=== PATIENT | male | born 1950 | race Caucasian/White ===

== ENCOUNTER → 2017-12-02 08:53 | Outpatient (CLI) | payer OTHER, SELFPAY | PROVIDERS: PCP Internal Medicine; Visit Provider Internal Medicine | DX: I87.311 Chronic venous hypertension (idiopathic) with ulcer of right lower extremity (principal); L97.812 Non-pressure chronic ulcer of other part of right lower leg with fat layer exposed; D48.5 Neoplasm of uncertain behavior of skin | CPT/HCPCS: 99212 ==

== ENCOUNTER → 2017-12-09 08:55 | Outpatient (CLI) | payer OTHER, SELFPAY | PROVIDERS: PCP Internal Medicine; Visit Provider Internal Medicine | DX: L97.812 Non-pressure chronic ulcer of other part of right lower leg with fat layer exposed (principal); D48.5 Neoplasm of uncertain behavior of skin | CPT/HCPCS: 99212 ==

== ENCOUNTER → 2017-12-16 09:14 | Outpatient (CLI) | payer OTHER, SELFPAY | PROVIDERS: PCP Internal Medicine; Visit Provider Internal Medicine | DX: I87.2 Venous insufficiency (chronic) (peripheral) (principal); L97.812 Non-pressure chronic ulcer of other part of right lower leg with fat layer exposed; D48.5 Neoplasm of uncertain behavior of skin | CPT/HCPCS: 97597 ==

== ENCOUNTER → 2017-12-23 08:35 | Outpatient (CLI) | payer OTHER, SELFPAY | PROVIDERS: PCP Internal Medicine; Visit Provider Internal Medicine | DX: I87.311 Chronic venous hypertension (idiopathic) with ulcer of right lower extremity (principal); L97.812 Non-pressure chronic ulcer of other part of right lower leg with fat layer exposed | CPT/HCPCS: 99213 ==

== ENCOUNTER → 2018-01-06 09:05 | Outpatient (CLI) | payer OTHER, SELFPAY ==
--- NOTE | 2018-01-06 | OV.WND_ITS ---
Progress Note Details Patient Name: Pio Silva Patient Number: [id number] PatientPatientDate: 01/06/2018 Clinician: Kadi Dial Clinician Cosigner: Kaitlin Montana Physician / Manager Line: Roverto Davis SUBJECTIVE Chief Complaint This information was obtained from the patient Ulcer to right medial lower leg. Allergies Bactrim (Severity: Moderate, Reaction: itchy rash) HPI This information was obtained from the patient 01/06/18. Seen by Dov Davis PA-C. The patient reports improvement in drainage from his right lower leg ulcer this week. 12/23/17. Seen by Dr. Jorge. The patient does not report significant drainage associated with the right lower leg venous ulcer since his last visit. 12/16/17. Seen by Dr. Jorge. The patient does not report significant drainage associated with the right lower leg venous ulcer since his last visit. Regarding the more proximal right lower leg neoplasm, he's now scheduled to see dermatology at the end of January and he notes that the eschar that had covered the central area of the lesion fell off in the shower earlier this week. 12/09/17. Seen by Dr. Jorge. The patient does not report significant drainage associated with the right lower leg venous ulcer since his last visit. He's not yet scheduled an appointment with dermatology to review the suspicious proximal right lower leg nodule that deteriorated when we placed a compression wrap 2 weeks ago. 12/02/17. Seen by Dr. Jorge. The patient reports pain associated with a proximal right lower leg nodule after placing a compression wrap at this last visit to treat chronic venous hypertension and a chronic distal right lower leg venous ulcer. He removed the wrap and notes a blister formed around the nodule and drained. This lesion has been present he states for at least 6 years and has not undergone any changes recently until the wrap was placed. 11/25/2017. Seen by Dr. Jorge. The patient tolerated the compression wrap that was placed 2 days ago and is treating chronic venous hypertension and the associated venous ulcer of the right lower leg. 11/23/17. Seen by Dr. Jorge. The patient does not report significant drainage associated with the right lower leg venous ulcer since his last visit. 11/16/17. Seen by Dr. Jorge. 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 11/09/17. Seen by Dr. Jorge. The patient reports only some mild intermittent discomfort associated with the chronic right lower leg venous ulcer since his last visit. He is applying topical gentamicin as recommended and changing the dressing daily. 10/31/17. Seen by Dr. Jorge. The patient does not report significant drainage associated with the right lower leg venous ulcer since his last visit however he does report some recurrence of pain over the past 24 hours. He is applying [id number] topical antibiotic and does not report leg swelling, fevers, or feeling unwell. 10/17/17. Seen by Dr. Jorge. The patient does not report pain nor significant drainage associated with the right lower leg venous ulcer since his last visit. He continues to apply topical antibiotic has completed his recent course of doxycycline those treating MSSA positive wound culture. Of note, he states is unable to afford the co-pay for debridements that his insurance is charging. He's also trying to reduce his smoking since our discussion last week. 10/10/17. Seen by Dr. Jorge. The patient reports decreased pain and drainage associated with the chronic right lower leg venous ulcer since his last visit. He also states the previous reported rash and pruritus has resolved since changing from Bactrim to doxycycline. 10/03/17. Seen by Dr. Jorge. The patient reports a pruritic rash since started taking Bactrim for the MSSA positive wound culture taken of the chronic right lower leg nonpressure ulcer last week. He does not report pain at the ulcer site nor increased drainage and feels the surrounding erythema is improving. He also continues smoking and has not yet decreased his habit following the recommendation offered in clinic last week. 09/27/17. Seen by Dov Davis PA-C. This patient is new to our clinic and presents with a non- healing ulcer of the right lower leg. He reports that it began spontaneously in May 2017 and he has attempted to heal it himself without success. He reports that he doesn't go to the doctor very often and is a current smoker. Family History This information was obtained from the patient Heart Disease - Father Social History This information was obtained from the patient Current every day smoker - 1 1/2 pack per day, since age 40, Alcohol Use - 3 per day, Caffeine Use - 3 per day, Lives in - Private home , Marital Status - , Retired, Tobacco Use - 1 1/2 pack a day Past Medical History This information was obtained from the patient Patient has a medical history of: Chronic venous hypertension (right lower leg; complicated by inflammation and ulcer) Surgical History This information was obtained from the patient Patient has a surgical history of: Esophageal obstruction- removal of a toothpick (2002) Esophageal obstruction- scar tissue/stricture removal Complaints and Symptoms This information was obtained from the patient Patient complains of: General Notes: I have reviewed and concur with the Review of Systems and Past Family Social History documents completed by the clinician, I have reviewed and concur with the Wound Assessment document completed by the clinician Integumentary (Hair/Skin/Nails): Open Sore Prior Wound History: Drainage, Pain Patient denies complaints or symptoms related to: Cardiovascular (Central): Irregular heart beat Cardiovascular (Central/Peripheral): Intermittent Claudication, Lower extremity (leg) resting pain, Lower extremity (leg) swelling Constitutional Symptoms (General Health): Chills, Fever Ear/Nose/Mouth/Throat: Hearing Loss / Aid Gastrointestinal (GI): Nausea / Vomiting Hematologic/Lymphatic: Bleeding / Clotting Disorders, Bleeding Tendency Musculoskeletal: Deformities, Muscle Wasting, Muscle Weakness Neurological: Loss of Protective Sensation Prior Wound History: Bleeding Psychiatric: Memory Loss Respiratory: Oxygen Use OBJECTIVE Constitutional Vital signs reviewed and noted. Well developed, lucid, and in no acute distress. . Height/Length: 72 in (182.88 cm), Weight: 197.4 lbs (89.73 kgs), BMI: 26.8, Temperature: 98.6 ?F (37 ?C), Pulse: 71 bpm, Respiratory Rate: 18 breaths/min, Blood Pressure : 155/91 mmHg, Pulse Oximetry: 99 %. Eyes: Conjunctiva clear and without icterus. Pupils are equal and round; EOM's intact. Ears, Nose, Mouth, and Throat: Grossly intact. Respiratory: No respiratory distress. Even respirations and without use of accessory muscles.. Integumentary (Hair, Skin) Refer to appropriate clinician wound documentation for this visit; ulcer extends to subcutaneous fat layer. . Wound #1 Right, Medial Leg is a chronic Full Thickness Venous Ulcer and has received a status of Not Healed. Subsequent wound encounter measurements are 0.8cm length x 0.3cm width x 0.1cm depth, with an area of 0.24 sq cm and a volume of 0.024 cubic cm. Hypergranulation was noted. No tunneling has been noted. No sinus tract has been noted. No undermining has been noted. There is a scant amount of sero-sanguineous drainage noted which has no odor. The patient reports a wound pain of level 0/10. The wound margin is attached. Wound bed has Yes epithelialization, No eschar, No slough, Yes bright red, firm granulation. The periwound skin texture is normal. The periwound skin moisture is normal. The periwound skin exhibited: Hemosiderosis. The periwound skin did not exhibit: Atrophie Maida, Cyanosis, Ecchymosis, Erythema, Pallor, Rubor. The temperature of the periwound skin is Warm. Periwound skin does not exhibit signs or symptoms of infection. Local Pulse is Strong. Psychiatric: Judgement and insight: Normal affect with normal thought pattern. Alert and oriented 3/3. Memory grossly intact.. Normal affect. Mood appropriate.. ASSESSMENT Active Problems ICD-10 (Encounter Diagnosis) L97.812 - Non-pressure chronic ulcer of other part of right lower leg with fat layer exposed PLAN Wound Orders: Wound #1 Right, Medial Leg Cleanser Cleanse Wound: - Normal Saline or distilled water. Dressings Primary dressing: - Gentamicin Cover and secure with: - Optifoam, conform gauze then hypafix tape Change Dressing: - Every other day. Compression/Edema Control Elevation of leg(s) above the level of the heart when sitting. Avoid prolonged standing in one place. Single Layer Compression Hose - Tetra E on in morning off at night. Follow-Up Appointments Return Appointment: - - two weeks Scribing Attestation I attest, as the nurse, that I scribed these orders for the physician. I've reviewed the clinician's documentation and agree with the evaluation and plan as written. The patient's condition continues to be medically complex requiring continued and regular specialty wound care clinic visits. To that end we will continue with routine dressing changes and in clinic medical assessments including surveillance for bacterial infection as well as routine debridements of non-viable tissue when needed. Electronic Signature(s) Signed By: Date: Dov Davis 01/09/2018 22:08:02 Entered By: Dov Davis on 01/09/2018 13:26:11
== END ==
PROVIDERS: PCP Internal Medicine; Visit Provider Physician Assistant
DX: L97.812 Non-pressure chronic ulcer of other part of right lower leg with fat layer exposed (principal)
CPT/HCPCS: 99213

== ENCOUNTER → 2018-01-20 08:30 | Outpatient (CLI) | payer OTHER, SELFPAY ==
--- NOTE | 2018-01-20 | OV.WND_ITS ---
Progress Note Details Patient Name: Pio Silva Patient Number: [id number] PatientPatientDate: 01/20/2018 Clinician: Kaitlin Montana Clinician Cosigner: Arianna Dodson Physician / Sub Plant Manager: Jaspreet Jorge SUBJECTIVE Chief Complaint This information was obtained from the patient Ulcer to right medial lower leg. Allergies Bactrim (Severity: Moderate, Reaction: itchy rash) HPI This information was obtained from the patient 01/20/18. Seen by Dr. Jorge. The patient does not report significant drainage associated with the right lower leg venous ulcer since his last visit. 01/06/18. Seen by Dov Davis PA-C. The patient reports improvement in drainage from his right lower leg ulcer this week. 12/23/17. Seen by Dr. Jorge. The patient does not report significant drainage associated with the right lower leg venous ulcer since his last visit. 12/16/17. Seen by Dr. Jorge. The patient does not report significant drainage associated with the right lower leg venous ulcer since his last visit. Regarding the more proximal right lower leg neoplasm, he's now scheduled to see dermatology at the end of January and he notes that the eschar that had covered the central area of the lesion fell off in the shower earlier this week. 12/09/17. Seen by Dr. Jorge. The patient does not report significant drainage associated with the right lower leg venous ulcer since his last visit. He's not yet scheduled an appointment with dermatology to review the suspicious proximal right lower leg nodule that deteriorated when we placed a compression wrap 2 weeks ago. 12/02/17. Seen by Dr. Jorge. The patient reports pain associated with a proximal right lower leg nodule after placing a compression wrap at this last visit to treat chronic venous hypertension and a chronic distal right lower leg venous ulcer. He removed the wrap and notes a blister formed around the nodule and drained. This lesion has been present he states for at least 6 years and has not undergone any changes recently until the wrap was placed. 11/25/2017. Seen by Dr. Jorge. The patient tolerated the compression wrap that was placed 2 days ago and is treating chronic venous hypertension and the associated venous ulcer of the right lower leg. 11/23/17. Seen by Dr. Jorge. The patient does not report significant drainage associated with the right lower leg venous ulcer since his last visit. 11/16/17. Seen by Dr. Jorge. 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 11/09/17. Seen by Dr. Jorge. The patient reports only some mild intermittent discomfort associated with the chronic right lower leg venous ulcer since his last visit. He is applying topical gentamicin as recommended and changing the dressing daily. 10/31/17. Seen by Dr. Jorge. The patient does not report significant drainage associated with the right lower leg venous ulcer since his last visit however he does report some recurrence of pain over the past 24 hours. He is applying [id number] topical antibiotic and does not report leg swelling, fevers, or feeling unwell. 10/17/17. Seen by Dr. Jorge. The patient does not report pain nor significant drainage associated with the right lower leg venous ulcer since his last visit. He continues to apply topical antibiotic has completed his recent course of doxycycline those treating MSSA positive wound culture. Of note, he states is unable to afford the co-pay for debridements that his insurance is charging. He's also trying to reduce his smoking since our discussion last week. 10/10/17. Seen by Dr. Jorge. The patient reports decreased pain and drainage associated with the chronic right lower leg venous ulcer since his last visit. He also states the previous reported rash and pruritus has resolved since changing from Bactrim to doxycycline. 10/03/17. Seen by Dr. Jorge. The patient reports a pruritic rash since started taking Bactrim for the MSSA positive wound culture taken of the chronic right lower leg nonpressure ulcer last week. He does not report pain at the ulcer site nor increased drainage and feels the surrounding erythema is improving. He also continues smoking and has not yet decreased his habit following the recommendation offered in clinic last week. 09/27/17. Seen by Dov Davis PA-C. This patient is new to our clinic and presents with a non- healing ulcer of the right lower leg. He reports that it began spontaneously in May 2017 and he has attempted to heal it himself without success. He reports that he doesn't go to the doctor very often and is a current smoker. Past Medical History This information was obtained from the patient Patient has a medical history of: Chronic venous hypertension (right lower leg; complicated by inflammation and ulcer) Complaints and Symptoms This information was obtained from the patient Patient complains of: General Notes: I have reviewed and concur with the Review of Systems and Past Family Social History documents completed by the clinician, I have reviewed and concur with the Wound Assessment document completed by the clinician Integumentary (Hair/Skin/Nails): Open Sore Prior Wound History: Drainage, Pain Patient denies complaints or symptoms related to: Cardiovascular (Central): Irregular heart beat Cardiovascular (Central/Peripheral): Intermittent Claudication, Lower extremity (leg) resting pain, Lower extremity (leg) swelling Constitutional Symptoms (General Health): Chills, Fever Ear/Nose/Mouth/Throat: Hearing Loss / Aid Gastrointestinal (GI): Nausea / Vomiting Hematologic/Lymphatic: Bleeding / Clotting Disorders, Bleeding Tendency Musculoskeletal: Deformities, Muscle Wasting, Muscle Weakness Neurological: Loss of Protective Sensation Prior Wound History: Bleeding Psychiatric: Memory Loss Respiratory: Oxygen Use OBJECTIVE Constitutional Vital signs reviewed and noted. Well developed. Alert. Clean appearing.. Height/ Length: 72 in (182.88 cm), Weight: 197.4 lbs (89.73 kgs), BMI: 26.8, Temperature: 98.2 ?F ( 36.78 ?C), Pulse: 65 bpm, Respiratory Rate: 18 breaths/min, Blood Pressure: 127/85 mmHg, Pulse Oximetry: 97 %. Ears, Nose, Mouth, and Throat: No clinically significant hearing loss on informal examination. Cardiovascular: 1+ right lower extremity edema. Integumentary (Hair, Skin) No periwound erythema, warmth, or significant drainage. No periwound rashes appreciated or noted otherwise.. Refer to appropriate clinician wound documentation for this visit; right lower leg ulcer extends to subcut with base partially covered with pink granulation, remainder fibrin and slough; much smaller than on previous review. Wound #1 Right, Medial Leg is a chronic Full Thickness Venous Ulcer and has received a status of Not Healed. Subsequent wound encounter measurements are 0.2cm length x 0.1cm width x 0.1cm depth, with an area of 0.02 sq cm and a volume of 0.002 cubic cm. Hypergranulation was noted. No tunneling has been noted. No sinus tract has been noted. No undermining has been noted. There was no drainage noted. The patient reports a wound pain of level 0/10. The wound margin is attached. Wound bed has Yes epithelialization, No eschar, No slough, No granulation. The periwound skin texture is normal. The periwound skin moisture is normal. The periwound skin exhibited: Hemosiderosis. The periwound skin did not exhibit: Atrophie Maida, Cyanosis, Ecchymosis, Erythema, Pallor, Rubor. The temperature of the periwound skin is Warm. Periwound skin does not exhibit signs or symptoms of infection. Local Pulse is Strong. Neurological: Cranial nerves grossly intact with symmetric function normal by informal observation.. ASSESSMENT Active Problems ICD-10 (Encounter Diagnosis) L97.812 - Non-pressure chronic ulcer of other part of right lower leg with fat layer exposed PLAN Wound Orders: Wound #1 Right, Medial Leg Cleanser Cleanse Wound: - Normal Saline or distilled water. Dressings Primary dressing: - Foam Cover and secure with: - conform gauze then hypafix tape Change Dressing: - Every other day. Compression/Edema Control Elevation of leg(s) above the level of the heart when sitting. Avoid prolonged standing in one place. Single Layer Compression Hose - Tetra E on in morning off at night. Follow-Up Appointments Return Appointment: - - two weeks Scribing Attestation I attest, as the nurse, that I scribed these orders for the physician. I've reviewed the clinician's documentation and agree with the evaluation and plan as written. Electronic Signature(s) Signed By: Date: Jaspreet Jorge MD 01/20/2018 15:59:11 Entered By: Jaspreet Jorge on 01/20/2018 14:25:34
== END ==
PROVIDERS: PCP Internal Medicine; Visit Provider Internal Medicine
DX: I87.311 Chronic venous hypertension (idiopathic) with ulcer of right lower extremity (principal); L97.812 Non-pressure chronic ulcer of other part of right lower leg with fat layer exposed
CPT/HCPCS: 99213

== ENCOUNTER → 2018-02-03 08:30 | Outpatient (CLI) | payer OTHER, SELFPAY ==
--- NOTE | 2018-02-03 | OV.WND_ITS ---
Progress Note Details Patient Name: Pio Silva Patient Number: [id number] PatientPatientDate: 02/03/2018 Clinician: Arianna Dodson Clinician Cosigner: Kaitlin [place] Physician / Soil Checker: Jaspreet Jorge SUBJECTIVE Chief Complaint This information was obtained from the patient Ulcer to right medial lower leg. Allergies Bactrim (Severity: Moderate, Reaction: itchy rash) HPI This information was obtained from the patient 02/03/18. Seen by Dr. Jorge. The patient reports increased pain and drainage associated with the chronic right lower leg venous ulcer starting about 2 days ago. He feels the leg is more swollen however he does not report fevers or feeling unwell. He'd also stopped applying topical gentamicin ointment following his last visit at our recommendation. 01/20/18. Seen by Dr. Jorge. The patient does not report significant drainage associated with the right lower leg venous ulcer since his last visit. 01/06/18. Seen by Dov Davis PA-C. The patient reports improvement in drainage from his right lower leg ulcer this week. 12/23/17. Seen by Dr. Jorge. The patient does not report significant drainage associated with the right lower leg venous ulcer since his last visit. 12/16/17. Seen by Dr. Jorge. The patient does not report significant drainage associated with the right lower leg venous ulcer since his last visit. Regarding the more proximal right lower leg neoplasm, he's now scheduled to see dermatology at the end of January and he notes that the eschar that had covered the central area of the lesion fell off in the shower earlier this week. 12/09/17. Seen by Dr. Jorge. The patient does not report significant drainage associated with the right lower leg venous ulcer since his last visit. He's not yet scheduled an appointment with dermatology to review the suspicious proximal right lower leg nodule that deteriorated when we placed a compression wrap 2 weeks ago. 12/02/17. Seen by Dr. Jorge. The patient reports pain associated with a proximal right lower leg nodule after placing a compression wrap at this last visit to treat chronic venous hypertension and a chronic distal right lower leg venous ulcer. He removed the wrap and notes a blister formed around the nodule and drained. This lesion has been present he states for at least 6 years and has not undergone any changes recently until the wrap was placed. 11/25/2017. Seen by Dr. Jorge. The patient tolerated the compression wrap that was placed 2 days ago and is treating chronic venous hypertension and the associated venous ulcer of the right lower leg. 11/23/17. Seen by Dr. Jorge. The patient does not report significant drainage associated with the right lower leg venous ulcer since his last visit. 11/16/17. Seen by Dr. Jorge. 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 11/09/17. Seen by Dr. Jorge. The patient reports only some mild intermittent discomfort associated with the chronic right lower leg venous ulcer since his last visit. He is applying topical gentamicin as recommended and changing the dressing daily. 10/31/17. Seen by Dr. Jorge. The patient does not report significant drainage associated with the right lower leg venous ulcer since his last visit however he does report some recurrence of pain over the past 24 hours. He is applying [id number] topical antibiotic and does not report leg swelling, fevers, or feeling unwell. 10/17/17. Seen by Dr. Jorge. The patient does not report pain nor significant drainage associated with the right lower leg venous ulcer since his last visit. He continues to apply topical antibiotic has completed his recent course of doxycycline those treating MSSA positive wound culture. Of note, he states is unable to afford the co-pay for debridements that his insurance is charging. He's also trying to reduce his smoking since our discussion last week. 10/10/17. Seen by Dr. Jorge. The patient reports decreased pain and drainage associated with the chronic right lower leg venous ulcer since his last visit. He also states the previous reported rash and pruritus has resolved since changing from Bactrim to doxycycline. 10/03/17. Seen by Dr. Jorge. The patient reports a pruritic rash since started taking Bactrim for the MSSA positive wound culture taken of the chronic right lower leg nonpressure ulcer last week. He does not report pain at the ulcer site nor increased drainage and feels the surrounding erythema is improving. He also continues smoking and has not yet decreased his habit following the recommendation offered in clinic last week. 09/27/17. Seen by Dov Davis PA-C. This patient is new to our clinic and presents with a non- healing ulcer of the right lower leg. He reports that it began spontaneously in May 2017 and he has attempted to heal it himself without success. He reports that he doesn't go to the doctor very often and is a current smoker. Past Medical History This information was obtained from the patient Patient has a medical history of: Chronic venous hypertension (right lower leg; complicated by inflammation and ulcer) Complaints and Symptoms This information was obtained from the patient Patient complains of: General Notes: I have reviewed and concur with the Review of Systems and Past Family Social History documents completed by the clinician, I have reviewed and concur with the Wound Assessment document completed by the clinician Integumentary (Hair/Skin/Nails): Open Sore Prior Wound History: Drainage, Pain Patient denies complaints or symptoms related to: Cardiovascular (Central): Irregular heart beat Cardiovascular (Central/Peripheral): Intermittent Claudication, Lower extremity (leg) resting pain, Lower extremity (leg) swelling Constitutional Symptoms (General Health): Chills, Fever Ear/Nose/Mouth/Throat: Hearing Loss / Aid Gastrointestinal (GI): Nausea / Vomiting Hematologic/Lymphatic: Bleeding / Clotting Disorders, Bleeding Tendency Musculoskeletal: Deformities, Muscle Wasting, Muscle Weakness Neurological: Loss of Protective Sensation Prior Wound History: Bleeding Psychiatric: Memory Loss Respiratory: Oxygen Use OBJECTIVE Constitutional BP elevated; Afebrile; Alert and in no distress. Well developed. Alert. Clean appearing.. Height/Length: 72 in (182.88 cm), Weight: 198.9 lbs (90.41 kgs), BMI: 27, Temperature: 98.9 ?F (37.17 ?C), Pulse: 63 bpm, Respiratory Rate: 18 breaths/min, Blood Pressure: 147/87 mmHg, Pulse Oximetry: 97 %. Ears, Nose, Mouth, and Throat: Mild hearing deficit. Respiratory: No respiratory distress. Even respirations and without use of accessory muscles.. Cardiovascular: 1+ right lower extremity edema. Integumentary (Hair, Skin) Moderate periwound erythema with warmth. Refer to appropriate clinician wound documentation for this visit; right lower leg ulcer extends to subcut with base partially covered with pink granulation, remainder fibrin and slough. Wound #1 Right, Medial Leg is a chronic Full Thickness Venous Ulcer and has received a status of Not Healed. Subsequent wound encounter measurements are 1.1cm length x 0.5cm width x 0.1cm depth, with an area of 0.55 sq cm and a volume of 0.055 cubic cm. Hypergranulation was noted. No tunneling has been noted. No sinus tract has been noted. No undermining has been noted. There is a small amount of serous drainage noted which has no odor. The patient reports a wound pain of level 0/10. The wound margin is attached. Wound bed has Yes epithelialization, No eschar, Yes slough, No granulation. The periwound skin texture is normal. The periwound skin moisture is normal. The periwound skin exhibited: Hemosiderosis. The periwound skin did not exhibit: Atrophie [place], Cyanosis, Ecchymosis, Erythema, Pallor, Rubor. The temperature of the periwound skin is Warm. Periwound skin presents with s/s of infection. Confirmation Description and Treatment Plan is: Signs and Symptoms Present. Local Pulse is Strong. Neurological: Cranial nerves grossly intact with symmetric function normal by informal observation.. ASSESSMENT Active Problems ICD-10 (Encounter Diagnosis) L97.812 - Non-pressure chronic ulcer of other part of right lower leg with fat layer exposed (Encounter Diagnosis) L03.115 - Cellulitis of right lower limb PLAN Wound Orders: Wound #1 Right, Medial Leg Cleanser Cleanse Wound: - Normal Saline or distilled water. Dressings Primary dressing: - Foam Cover and secure with: - conform gauze then hypafix tape Change Dressing: - Every other day. Compression/Edema Control Elevation of leg(s) above the level of the heart when sitting. Avoid prolonged standing in one place. Single Layer Compression Hose - Tetra E on in morning off at night. Follow-Up Appointments Return Appointment: - - two weeks Scribing Attestation I attest, as the nurse, that I scribed these orders for the physician. Additional Orders: Topical Treatments Antibiotic/Antimicrobial Ointment/Cream. - Gentamicin Laboratory: Culture Wound - Right leg Medications prescribed: doxycycline hyclate - oral 100 mg capsule twice daily for 5 days for cellulitis starting 02/03/2018 I've reviewed the clinician's documentation and agree with the evaluation and plan as written. Also, I've started the patient on doxycycline for cellulitis of the right lower leg associated with the venous ulcer. Electronic Signature(s) Signed By: Date: Jaspreet Jorge MD 02/03/2018 13:04:12 Entered By: Jaspreet Jorge on 02/03/2018 13:02:57
== END ==
PROVIDERS: PCP Internal Medicine; Visit Provider Internal Medicine
DX: I87.311 Chronic venous hypertension (idiopathic) with ulcer of right lower extremity (principal); L97.812 Non-pressure chronic ulcer of other part of right lower leg with fat layer exposed; L03.115 Cellulitis of right lower limb
CPT/HCPCS: 87070; 87075; 87077; 87147; 87205; 99212

== ENCOUNTER → 2018-02-10 08:31 | Outpatient (CLI) | payer OTHER, SELFPAY | PROVIDERS: PCP Internal Medicine; Visit Provider Internal Medicine | DX: I87.2 Venous insufficiency (chronic) (peripheral) (principal); L97.811 Non-pressure chronic ulcer of other part of right lower leg limited to breakdown of skin; L03.115 Cellulitis of right lower limb | CPT/HCPCS: 99213 ==

== ENCOUNTER → 2018-02-27 08:29 | Outpatient (CLI) | payer OTHER, SELFPAY ==
--- NOTE | 2018-02-27 | OV.WND_ITS ---
Progress Note Details Patient Name: Pio Silva Patient Number: [id number] PatientPatientDate: 02/27/2018 Clinician: Kaitlin Montana Clinician Cosigner: Arianna Dodson Physician / Branch Banker: Jaspreet Jorge SUBJECTIVE Chief Complaint This information was obtained from the patient Ulcer to right medial lower leg. Allergies Bactrim (Severity: Moderate, Reaction: itchy rash) HPI This information was obtained from the patient 02/27/18. Seen by Dr. Jorge. The patient does not report significant drainage associated with the right lower leg venous ulcer since his last visit. He does have a new surgical wound just proximal to the ulcer from his recent biopsy of a chronic lesion. He actually had 2 biopsies as the initial one was lost. 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 02/10/18. Seen by Dr. Jorge. The patient reports resolution of pain and drainage associated with the chronic right lower leg venous ulcer since completing his course of doxycycline that was started for cellulitis associated with the ulcer. 02/03/18. Seen by Dr. Jorge. The patient reports increased pain and drainage associated with the chronic right lower leg venous ulcer starting about 2 days ago. He feels the leg is more swollen however he does not report fevers or feeling unwell. He'd also stopped applying topical gentamicin ointment following his last visit at our recommendation. 01/20/18. Seen by Dr. Jorge. The patient does not report significant drainage associated with the right lower leg venous ulcer since his last visit. 01/06/18. Seen by Dov Davis PA-C. The patient reports improvement in drainage from his right lower leg ulcer this week. 12/23/17. Seen by Dr. Jorge. The patient does not report significant drainage associated with the right lower leg venous ulcer since his last visit. 12/16/17. Seen by Dr. Jorge. The patient does not report significant drainage associated with the right lower leg venous ulcer since his last visit. Regarding the more proximal right lower leg neoplasm, he's now scheduled to see dermatology at the end of January and he notes that the eschar that had covered the central area of the lesion fell off in the shower earlier this week. 12/09/17. Seen by Dr. Jorge. The patient does not report significant drainage associated with the right lower leg venous ulcer since his last visit. He's not yet scheduled an appointment with dermatology to review the suspicious proximal right lower leg nodule that deteriorated when we placed a compression wrap 2 weeks ago. 12/02/17. Seen by Dr. Jorge. The patient reports pain associated with a proximal right lower leg nodule after placing a compression wrap at this last visit to treat chronic venous hypertension and a chronic distal right lower leg venous ulcer. He removed the wrap and notes a blister formed around the nodule and drained. This lesion has been present he states for at least 6 years and has not undergone any changes recently until the wrap was placed. 11/25/2017. Seen by Dr. Jorge. The patient tolerated the compression wrap that was placed 2 days ago and is treating chronic venous hypertension and the associated venous ulcer of the right lower leg. 11/23/17. Seen by Dr. Jorge. The patient does not report significant drainage associated with the right lower leg venous ulcer since his last visit. 11/16/17. Seen by Dr. Jorge. 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 11/09/17. Seen by Dr. Jorge. The patient reports only some mild intermittent discomfort associated with the chronic right lower leg venous ulcer since his last visit. He is applying topical gentamicin as recommended and changing the dressing daily. 10/31/17. Seen by Dr. Jorge. The patient does not report significant drainage associated with the right lower leg venous ulcer since his last visit however he does report some recurrence of pain over the past 24 hours. He is applying [id number] topical antibiotic and does not report leg swelling, fevers, or feeling unwell. 10/17/17. Seen by Dr. Jorge. The patient does not report pain nor significant drainage associated with the right lower leg venous ulcer since his last visit. He continues to apply topical antibiotic has completed his recent course of doxycycline those treating MSSA positive wound culture. Of note, he states is unable to afford the co-pay for debridements that his insurance is charging. He's also trying to reduce his smoking since our discussion last week. 10/10/17. Seen by Dr. Jorge. The patient reports decreased pain and drainage associated with the chronic right lower leg venous ulcer since his last visit. He also states the previous reported rash and pruritus has resolved since changing from Bactrim to doxycycline. 10/03/17. Seen by Dr. Jorge. The patient reports a pruritic rash since started taking Bactrim for the MSSA positive wound culture taken of the chronic right lower leg nonpressure ulcer last week. He does not report pain at the ulcer site nor increased drainage and feels the surrounding erythema is improving. He also continues smoking and has not yet decreased his habit following the recommendation offered in clinic last week. 09/27/17. Seen by Dov Davis PA-C. This patient is new to our clinic and presents with a non- healing ulcer of the right lower leg. He reports that it began spontaneously in May 2017 and he has attempted to heal it himself without success. He reports that he doesn't go to the doctor very often and is a current smoker. Family History This information was obtained from the patient Heart Disease - Father Social History This information was obtained from the patient Current every day smoker - 1 1/2 pack per day, since age 40, Alcohol Use - 3 per day, Caffeine Use - 3 per day, Lives in - Private home , Marital Status - , Retired, Tobacco Use (deprecated) - 1 1/2 pack a day Past Medical History This information was obtained from the patient Patient has a medical history of: Chronic venous hypertension (right lower leg; complicated by inflammation and ulcer) Surgical History This information was obtained from the patient Patient has a surgical history of: Esophageal obstruction- removal of a toothpick (2002) Esophageal obstruction- scar tissue/stricture removal Complaints and Symptoms This information was obtained from the patient Patient complains of: General Notes: I have reviewed and concur with the Review of Systems and Past Family Social History documents completed by the clinician, I have reviewed and concur with the Wound Assessment document completed by the clinician Integumentary (Hair/Skin/Nails): Open Sore Prior Wound History: Drainage, Pain Patient denies complaints or symptoms related to: Cardiovascular (Central): Irregular heart beat Cardiovascular (Central/Peripheral): Intermittent Claudication, Lower extremity (leg) resting pain, Lower extremity (leg) swelling Constitutional Symptoms (General Health): Chills, Fever Ear/Nose/Mouth/Throat: Hearing Loss / Aid Gastrointestinal (GI): Nausea / Vomiting Hematologic/Lymphatic: Bleeding / Clotting Disorders, Bleeding Tendency Musculoskeletal: Deformities, Muscle Wasting, Muscle Weakness Neurological: Loss of Protective Sensation Prior Wound History: Bleeding Psychiatric: Memory Loss Respiratory: Oxygen Use OBJECTIVE Constitutional BP elevated; Afebrile; Alert and in no distress. Well developed. Alert. Clean appearing.. Height/Length: 72 in (182.88 cm), Weight: 197.9 lbs (89.95 kgs), BMI: 26.8, Temperature: 98.8 ?F (37.11 ?C), Pulse: 66 bpm, Respiratory Rate: 18 breaths/min, Blood Pressure: 148/88 mmHg, Pulse Oximetry: 97 %. Ears, Nose, Mouth, and Throat: Mild hearing deficit. Integumentary (Hair, Skin) Hemosiderin staining noted over right lower leg. Refer to appropriate clinician wound documentation for this visit; right lower leg ulcer extends to subcut with base partially covered with pink granulation, remainder fibrin and slough; proximal right lower leg wound extends to subcut with central round nodule present. Wound #1 Right, Medial Leg is a chronic Full Thickness Venous Ulcer and has received a status of Not Healed. Subsequent wound encounter measurements are 0.1cm length x 0.1cm width x 0.1cm depth, with an area of 0.01 sq cm and a volume of 0.001 cubic cm. Hypergranulation was noted. No tunneling has been noted. No sinus tract has been noted. No undermining has been noted. There is a scant amount of serous drainage noted which has no odor. The patient reports a wound pain of level 0/10. The wound margin is attached. Wound bed has Yes epithelialization, No eschar, No slough, Yes bright red, pink, firm granulation. The periwound skin texture is normal. The periwound skin moisture is normal. The periwound skin exhibited: Hemosiderosis. The periwound skin did not exhibit: Atrophie [place], Cyanosis, Ecchymosis, Erythema, Pallor, Rubor. The temperature of the periwound skin is Warm. Periwound skin does not exhibit signs or symptoms of infection. Local Pulse is Strong. Neurological: Cranial nerves grossly intact with symmetric function normal by informal observation.. ASSESSMENT Active Problems ICD-10 (Encounter Diagnosis) L97.812 - Non-pressure chronic ulcer of other part of right lower leg with fat layer exposed (Encounter Diagnosis) D23.9 - Other benign neoplasm of skin, unspecified PLAN Wound Orders: Wound #1 Right, Medial Leg Cleanser Cleanse Wound: - Normal Saline or distilled water. Dressings Primary dressing: - Telfa Cover and secure with: - conform gauze then hypafix tape Change Dressing: - Every other day. Compression/Edema Control Elevation of leg(s) above the level of the heart when sitting. Avoid prolonged standing in one place. Single Layer Compression Hose - Tetra E on in morning off at night. Follow-Up Appointments Return Appointment: - - Two weeks. Other information: If you develop fever, chills, increased pain, drainage, redness or swelling please call our office. If after hours, respond to the ER. Should you experience any significant changes in your wound(s) or have any questions regarding your home care instructions please contact the wound center @ [phone]. If after hours, contact your primary care physician or go to the hospital emergency room. Scribing Attestation I attest, as the nurse, that I scribed these orders for the physician. Additional Orders: Topical Treatments Antibiotic/Antimicrobial Ointment/Cream. - Gentamicin I've reviewed the clinician's documentation and agree with the evaluation and plan as written. Also, the chronic non-pressure ulcer is nearly healed and we'll be available to manage the right lower leg surgical wound as needed should it become complicated. It appears that it will heal via secondary intention. Electronic Signature(s) Signed By: Date: Jaspreet Jorge MD 02/28/2018 09:26:45 Entered By: Jaspreet Jorge on 02/28/2018 09:25:47
== END ==
PROVIDERS: PCP Internal Medicine; Visit Provider Internal Medicine
DX: I87.2 Venous insufficiency (chronic) (peripheral) (principal); L97.812 Non-pressure chronic ulcer of other part of right lower leg with fat layer exposed; D23.9 Other benign neoplasm of skin, unspecified
CPT/HCPCS: 99213

== ENCOUNTER → 2018-03-13 08:32 | Outpatient (CLI) | payer OTHER, SELFPAY ==
--- NOTE | 2018-03-13 | OV.WND_ITS ---
Progress Note Details Patient Name: Pio Silva Patient Number: [id number] PatientPatientDate: 03/13/2018 Clinician: Michelle Lewis Physician / Solder Sprayer: Jaspreet Jorge SUBJECTIVE Chief Complaint This information was obtained from the patient Ulcer to right medial lower leg. Allergies Bactrim (Severity: Moderate, Reaction: itchy rash) HPI This information was obtained from the patient 03/13/18. Seen by Dr. Jorge. The patient does not report significant drainage associated with the right lower leg venous ulcer since his last visit. He does not report pain or drainage associated with recently biopsied right proximal lower leg surgical wound either but has not had a follow appointment with dermatology yet regarding this. The biopsy showed a benign dermatofibroma. 02/27/18. Seen by Dr. Jorge. The patient does not report significant drainage associated with the right lower leg venous ulcer since his last visit. He does have a new surgical wound just proximal to the ulcer from his recent biopsy of a chronic lesion. He actually had 2 biopsies as the initial one was lost. 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 02/10/18. Seen by Dr. Jorge. The patient reports resolution of pain and drainage associated with the chronic right lower leg venous ulcer since completing his course of doxycycline that was started for cellulitis associated with the ulcer. 02/03/18. Seen by Dr. Jorge. The patient reports increased pain and drainage associated with the chronic right lower leg venous ulcer starting about 2 days ago. He feels the leg is more swollen however he does not report fevers or feeling unwell. He'd also stopped applying topical gentamicin ointment following his last visit at our recommendation. 01/20/18. Seen by Dr. Jorge. The patient does not report significant drainage associated with the right lower leg venous ulcer since his last visit. 01/06/18. Seen by Dov Davis PA-C. The patient reports improvement in drainage from his right lower leg ulcer this week. 12/23/17. Seen by Dr. Jorge. The patient does not report significant drainage associated with the right lower leg venous ulcer since his last visit. 12/16/17. Seen by Dr. Jorge. The patient does not report significant drainage associated with the right lower leg venous ulcer since his last visit. Regarding the more proximal right lower leg neoplasm, he's now scheduled to see dermatology at the end of January and he notes that the eschar that had covered the central area of the lesion fell off in the shower earlier this week. 12/09/17. Seen by Dr. Jorge. The patient does not report significant drainage associated with the right lower leg venous ulcer since his last visit. He's not yet scheduled an appointment with dermatology to review the suspicious proximal right lower leg nodule that deteriorated when we placed a compression wrap 2 weeks ago. 12/02/17. Seen by Dr. Jorge. The patient reports pain associated with a proximal right lower leg nodule after placing a compression wrap at this last visit to treat chronic venous hypertension and a chronic distal right lower leg venous ulcer. He removed the wrap and notes a blister formed around the nodule and drained. This lesion has been present he states for at least 6 years and has not undergone any changes recently until the wrap was placed. 11/25/2017. Seen by Dr. Jorge. The patient tolerated the compression wrap that was placed 2 days ago and is treating chronic venous hypertension and the associated venous ulcer of the right lower leg. 11/23/17. Seen by Dr. Jorge. The patient does not report significant drainage associated with the right lower leg venous ulcer since his last visit. 11/16/17. Seen by Dr. Jorge. 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 11/09/17. Seen by Dr. Jorge. The patient reports only some mild intermittent discomfort associated with the chronic right lower leg venous ulcer since his last visit. He is applying topical gentamicin as recommended and changing the dressing daily. 10/31/17. Seen by Dr. Jorge. The patient does not report significant drainage associated with the right lower leg venous ulcer since his last visit however he does report some recurrence of pain over the past 24 hours. He is applying [id number] topical antibiotic and does not report leg swelling, fevers, or feeling unwell. 10/17/17. Seen by Dr. Jorge. The patient does not report pain nor significant drainage associated with the right lower leg venous ulcer since his last visit. He continues to apply topical antibiotic has completed his recent course of doxycycline those treating MSSA positive wound culture. Of note, he states is unable to afford the co-pay for debridements that his insurance is charging. He's also trying to reduce his smoking since our discussion last week. 10/10/17. Seen by Dr. Jorge. The patient reports decreased pain and drainage associated with the chronic right lower leg venous ulcer since his last visit. He also states the previous reported rash and pruritus has resolved since changing from Bactrim to doxycycline. 10/03/17. Seen by Dr. Jorge. The patient reports a pruritic rash since started taking Bactrim for the MSSA positive wound culture taken of the chronic right lower leg nonpressure ulcer last week. He does not report pain at the ulcer site nor increased drainage and feels the surrounding erythema is improving. He also continues smoking and has not yet decreased his habit following the recommendation offered in clinic last week. 09/27/17. Seen by Dov Davis PA-C. This patient is new to our clinic and presents with a non- healing ulcer of the right lower leg. He reports that it began spontaneously in May 2017 and he has attempted to heal it himself without success. He reports that he doesn't go to the doctor very often and is a current smoker. Past Medical History This information was obtained from the patient Patient has a medical history of: Chronic venous hypertension (right lower leg; complicated by inflammation and ulcer) Complaints and Symptoms This information was obtained from the patient Patient complains of: General Notes: I have reviewed and concur with the Review of Systems and Past Family Social History documents completed by the clinician, I have reviewed and concur with the Wound Assessment document completed by the clinician Integumentary (Hair/Skin/Nails): Open Sore Prior Wound History: Drainage, Pain Patient denies complaints or symptoms related to: Cardiovascular (Central): Irregular heart beat Cardiovascular (Central/Peripheral): Intermittent Claudication, Lower extremity (leg) resting pain, Lower extremity (leg) swelling Constitutional Symptoms (General Health): Chills, Fever Ear/Nose/Mouth/Throat: Hearing Loss / Aid Gastrointestinal (GI): Nausea / Vomiting Hematologic/Lymphatic: Bleeding / Clotting Disorders, Bleeding Tendency Musculoskeletal: Deformities, Muscle Wasting, Muscle Weakness Neurological: Loss of Protective Sensation Prior Wound History: Bleeding Psychiatric: Memory Loss Respiratory: Oxygen Use OBJECTIVE Constitutional BP elevated; Afebrile; Alert and in no distress. Well developed. Alert. Clean appearing.. Height/Length: 72 in (182.88 cm), Weight: 197.9 lbs (89.95 kgs), BMI: 26.8, Temperature: 98.7 ?F (37.06 ?C), Pulse: 61 bpm, Respiratory Rate: 18 breaths/min, Blood Pressure: 148/78 mmHg, Pulse Oximetry: 98 %. Respiratory: No respiratory distress. Even respirations and without use of accessory muscles.. Cardiovascular: Affected extremity exhibits no peripheral edema or cyanosis, is warm, and is well perfused. Capillary refill is less than 2 seconds. Integumentary (Hair, Skin) Hemosiderin staining noted over right lower leg. Refer to appropriate clinician wound documentation for this visit; right lower leg ulcer and wound extend to subcut with base partially covered with pink granulation, remainder fibrin and slough; wound has new hypergranulation growth in the center with slough around the margins. Wound #1 Right, Medial Leg is a chronic Full Thickness Venous Ulcer and has received a status of Not Healed. Subsequent wound encounter measurements are 0.2cm length x 0.1cm width x 0.1cm depth, with an area of 0.02 sq cm and a volume of 0.002 cubic cm. Hypergranulation was noted. No tunneling has been noted. No sinus tract has been noted. No undermining has been noted. There is a scant amount of serous drainage noted which has no odor. The patient reports a wound pain of level 0/10. The wound margin is attached. Wound bed has Yes epithelialization, No eschar, No slough, Yes bright red, pink, firm granulation. The periwound skin texture is normal. The periwound skin moisture is normal. The periwound skin exhibited: Hemosiderosis. The periwound skin did not exhibit: Atrophie Maida, Cyanosis, Ecchymosis, Erythema, Pallor, Rubor. The temperature of the periwound skin is Warm. Periwound skin does not exhibit signs or symptoms of infection. Local Pulse is Strong. Neurological: Cranial nerves grossly intact with symmetric function normal by informal observation.. ASSESSMENT Active Problems ICD-10 (Encounter Diagnosis) L97.812 - Non-pressure chronic ulcer of other part of right lower leg with fat layer exposed (Encounter Diagnosis) S81.801D - Unspecified open wound, right lower leg, subsequent encounter (Encounter Diagnosis) D23.9 - Other benign neoplasm of skin, unspecified PLAN Wound Orders: Wound #1 Right, Medial Leg Cleanser Cleanse Wound: - Normal Saline or distilled water. Dressings Primary dressing: - Bordered Foam Change Dressing: - Every other day. Compression/Edema Control Elevation of leg(s) above the level of the heart when sitting. Avoid prolonged standing in one place. Single Layer Compression Hose - Tetra E on in morning off at night. Follow-Up Appointments Return Appointment: - - Two weeks. Other information: If you develop fever, chills, increased pain, drainage, redness or swelling please call our office. If after hours, respond to the ER. Should you experience any significant changes in your wound(s) or have any questions regarding your home care instructions please contact the wound center @ [phone]. If after hours, contact your primary care physician or go to the hospital emergency room. Scribing Attestation I attest, as the nurse, that I scribed these orders for the physician. I've reviewed the clinician's documentation and agree with the evaluation and plan as written. Also, the patient will liaise with dermatology regarding the biopsy wound and whether they'd like for us to take over management as it's going to heal slowly through secondary intention. Electronic Signature(s) Signed By: Date: Jaspreet Jorge MD 03/13/2018 13:54:04 Entered By: Jaspreet Jorge on 03/13/2018 13:51:16
== END ==
PROVIDERS: PCP Internal Medicine; Visit Provider Internal Medicine
DX: I87.2 Venous insufficiency (chronic) (peripheral) (principal); L97.812 Non-pressure chronic ulcer of other part of right lower leg with fat layer exposed; D23.9 Other benign neoplasm of skin, unspecified
CPT/HCPCS: 99212

== ENCOUNTER → 2018-03-27 09:08 | Outpatient (CLI) | payer OTHER, SELFPAY | PROVIDERS: PCP Internal Medicine; Visit Provider Internal Medicine | DX: I87.2 Venous insufficiency (chronic) (peripheral) (principal); L97.811 Non-pressure chronic ulcer of other part of right lower leg limited to breakdown of skin | CPT/HCPCS: 99213 ==

== ENCOUNTER → 2020-05-28 13:56 | Outpatient (CLI) | payer OTHER, SELFPAY ==
[2020-05-28 15:11] LABS: Add Manual Diff / Slide Review NO; Basophils Absolute Auto 100 /uL (0-100); Basophils Percent Auto 1.1 % (0-2); Eosinophils Absolute Auto 200 /uL (0-450); Eosinophils Percent Auto 2.3 % (2-4); Hematocrit 41.6 % (41-53); Hemoglobin 13.9 g/dL (13.5-17.5); Lymphocytes Absolute Auto 2800 /uL (1100-4500); Lymphocytes Percent Auto 26.1 % (25-40); Mean Corpuscular HGB Conc 33.5 % (30-36); Mean Corpuscular Hemoglobin 30.8 PG (26-34); Monocytes Absolute Auto 800 /uL (0-900); Monocytes Percent Auto 7.2 % (3-14); Neutrophils Absolute Auto 6700 /uL (1500-7000); Neutrophils Percent Auto 63.3 % (50-75); Platelet Count 577 X10^3/uL (150-400); Red Blood Cell Count 4.52 X10^6/uL (4.5-5.9); White Blood Cell Count 10.6 X10^3/uL (4.5-11.0)
[2020-05-28 15:17] LABS: Hemoglobin A1C% w Est Avg Glu 5.8 % (4.0-6.0)
[2020-05-28 16:08] LABS: Alanine Aminotransferase 13 IU/L (<50); Albumin 3.8 g/dL (3.5-5.0); Albumin Globulin Ratio 1.3 (1.0-2.8); Alkaline Phosphatase 85 U/L (38-126); Aspartate Aminotransferase 18 IU/L (17-59); BUN Creatinine Ratio 18.6 (6-22); Bilirubin Total 0.6 mg/dL (0.2-1.3); Blood Urea Nitrogen 16 mg/dL (9-20); Calcium 9.2 mg/dL (8.4-10.2); Carbon Dioxide 32 mmol/L (22-32); Chloride 100 mmol/L (98-107); Cholesterol 174 mg/dL (140-199); Estimated Glomerular Filt Rate > 60.0 mL/min (>60); Glucose 102 mg/dL (80-110); HDL Cholesterol 43 mg/dL (40-60); HEMOLYSIS < 15 (0-50); LDL Cholesterol Calculated 110 mg/dL (<100); Potassium 4.8 mmol/L (3.4-5.1); Sodium 136 mmol/L (137-145); Total Protein 6.8 g/dL (6.3-8.2); Triglycerides 107 mg/dL (35-150)
== END ==
PROVIDERS: PCP Family Medicine; Referring Provider Family Medicine; Visit Provider Family Medicine
DX: Z13.220 Encounter for screening for lipoid disorders (principal)
CPT/HCPCS: 36415; 80053; 80061; 83036; 85025

== ENCOUNTER → 2020-06-04 11:00 | Outpatient (CLI) | payer OTHER, SELFPAY | PROVIDERS: Family Provider Family Medicine; PCP Family Medicine; Referring Provider Family Medicine; Visit Provider Family Medicine | DX: I87.2 Venous insufficiency (chronic) (peripheral) (principal); L97.811 Non-pressure chronic ulcer of other part of right lower leg limited to breakdown of skin; L03.115 Cellulitis of right lower limb; R60.0 Localized edema; G89.18 Other acute postprocedural pain; F17.210 Nicotine dependence, cigarettes, uncomplicated | CPT/HCPCS: 11042; 11045; 87070; 87075; 87077; 87147; 87186; 87205; 99213; 99214 ==

== ENCOUNTER → 2020-06-17 15:15 | Outpatient (CLI) | payer OTHER, SELFPAY | PROVIDERS: Family Provider Family Medicine; PCP Family Medicine; Visit Provider Family Medicine | DX: I83.018 Varicose veins of right lower extremity with ulcer other part of lower leg (principal); L97.812 Non-pressure chronic ulcer of other part of right lower leg with fat layer exposed | CPT/HCPCS: 87070; 87075; 87077; 87186; 87205 ==

== ENCOUNTER → 2020-06-25 09:40 | Outpatient (CLI) | payer OTHER, SELFPAY | PROVIDERS: Family Provider Family Medicine; PCP Family Medicine; Referring Provider Family Medicine; Visit Provider Family Medicine | DX: I87.2 Venous insufficiency (chronic) (peripheral) (principal); L97.811 Non-pressure chronic ulcer of other part of right lower leg limited to breakdown of skin; L08.9 Local infection of the skin and subcutaneous tissue, unspecified; B96.1 Klebsiella pneumoniae [K. pneumoniae] as the cause of diseases classified elsewhere; Z72.0 Tobacco use | CPT/HCPCS: 11042; 11045; 99214 ==

== ENCOUNTER → 2020-10-01 11:12 | Outpatient (CLI) | payer MEDICARE, SELFPAY ==
[2020-10-01] MEDS: COVID-19 VACC #1, MRNA(MOD) 100 MCG/0.5 ML VIAL IM (11:21)
== END ==
PROVIDERS: Family Provider Family Medicine; PCP Family Medicine; Visit Provider Internal Medicine
DX: Z23 Encounter for immunization (principal)
CPT/HCPCS: 0011A; 91301

== ENCOUNTER → 2020-10-29 10:13 | Outpatient (CLI) | payer MEDICARE, SELFPAY ==
[2020-10-29] MEDS: COVID-19 VACC #2, MRNA(MOD) 100 MCG/0.5 ML VIAL IM (10:18)
== END ==
PROVIDERS: PCP Family Medicine; Visit Provider Internal Medicine
DX: Z23 Encounter for immunization (principal)
CPT/HCPCS: 0012A; 91301

== ENCOUNTER → 2020-11-26 14:20 | Outpatient (CLI) | payer OTHER, SELFPAY | PROVIDERS: PCP Family Medicine; Visit Provider Nurse Practitioner Family | DX: I83.018 Varicose veins of right lower extremity with ulcer other part of lower leg (principal); L97.812 Non-pressure chronic ulcer of other part of right lower leg with fat layer exposed | CPT/HCPCS: 87070; 87075; 87077; 87186; 87205 ==

== ENCOUNTER → 2021-03-03 14:41 | Outpatient (CLI) | payer OTHER, SELFPAY | PROVIDERS: PCP Family Medicine; Visit Provider Nurse Practitioner Family | DX: L08.9 Local infection of the skin and subcutaneous tissue, unspecified (principal); L97.819 Non-pressure chronic ulcer of other part of right lower leg with unspecified severity | CPT/HCPCS: 87070; 87075; 87077; 87147; 87186; 87205 ==

== ENCOUNTER → 2021-04-08 12:56 | Outpatient (CLI) | payer OTHER, SELFPAY | PROVIDERS: PCP Family Medicine; Visit Provider Nurse Practitioner Family | DX: L97.819 Non-pressure chronic ulcer of other part of right lower leg with unspecified severity (principal) | CPT/HCPCS: 87070; 87077; 87147; 87186; 87205 ==

== ENCOUNTER → 2021-06-03 14:03 | Outpatient (CLI) | payer OTHER, SELFPAY | PROVIDERS: PCP Family Medicine; Visit Provider Nurse Practitioner Family | DX: L97.819 Non-pressure chronic ulcer of other part of right lower leg with unspecified severity (principal); L08.9 Local infection of the skin and subcutaneous tissue, unspecified | CPT/HCPCS: 87070; 87075; 87205 ==

== ENCOUNTER → 2021-06-03 14:14 | Outpatient (CLI) | payer OTHER, SELFPAY ==
--- NOTE | 2021-06-03 14:26 | DI.RAD.S_ITS ---
PROCEDURE: XR TIBIA FUBULA RT 2V INDICATIONS: non-healing pressure ulcer TECHNIQUE: 2 views of the tibia and fibula were acquired. COMPARISON: None. FINDINGS: Bones: No fractures or dislocations. No suspicious bony lesions. Soft tissues: No suspicious soft tissue calcifications or masses. Occasional small calcifications of venous stasis in the soft tissues. IMPRESSION: 1. Intact tibia and fibula. 2. Soft tissue calcifications suggesting venous stasis disease. 3. No visible arterial calcification. Dictated by: Elina Ferris M.D. on 06/03/2021 at 16:30 Approved by: Elina Ferris M.D. on 06/03/2021 at 16:32
[2021-06-03 15:30] LABS: Add Manual Diff / Slide Review NO; Basophils Absolute Auto 100 /uL (0-100); Basophils Percent Auto 1.3 % (0-2); Eosinophils Absolute Auto 200 /uL (0-450); Hematocrit 42.7 % (41-53); Hemoglobin 14.5 g/dL (13.5-17.5); Lymphocytes Absolute Auto 1800 /uL (1100-4500); Lymphocytes Percent Auto 18.2 % (25-40); Mean Corpuscular HGB Conc 33.9 % (30-36); Mean Corpuscular Volume 91.4 fL (80-100); Monocytes Absolute Auto 600 /uL (0-900); Monocytes Percent Auto 6.4 % (3-14); Neutrophils Absolute Auto 7000 /uL (1500-7000); Neutrophils Percent Auto 72.1 % (50-75); Platelet Count 359 X10^3/uL (150-400); Red Blood Cell Count 4.67 X10^6/uL (4.5-5.9); Red Cell Distribution Width 14.2 % (11.6-14.8); White Blood Cell Count 9.7 X10^3/uL (4.5-11.0)
[2021-06-03 15:54] LABS: C-Reactive Protein Quant 1.8 mg/dL (<1.0)
[2021-06-03 16:03] LABS: Erythrocyte Sedimentation Rate 8 MM/HR (0-15)
== END ==
LOC: LAB 14:16 → RAD 14:26
PROVIDERS: PCP Family Medicine; Referring Provider Nurse Practitioner Family; Visit Provider Nurse Practitioner Family
DX: L08.9 Local infection of the skin and subcutaneous tissue, unspecified (principal); L97.819 Non-pressure chronic ulcer of other part of right lower leg with unspecified severity
CPT/HCPCS: 36415; 73590; 85025; 85651; 86140; 87070; 87075; 87077; 87147; 87186; 87205

== ENCOUNTER → 2021-07-30 09:43 | Outpatient (CLI) | payer OTHER, SELFPAY ==
--- NOTE | 2021-07-30 09:45 | DI.RAD.S_ITS ---
PROCEDURE: XR KNEE RT 3V INDICATIONS: evaluate and treat TECHNIQUE: 3 views of the knee were acquired. COMPARISON: None. FINDINGS: Bones: No fractures or dislocations. No suspicious bony lesions. Soft tissues: Moderate joint effusion. No suspicious soft tissue calcifications. IMPRESSION: Moderate effusion. No visualized acute fracture or dislocation. However, if clinical concern and/or pain persist, short interval imaging followup in 7-10 days is recommended, as occult injury cannot be definitively excluded. Dictated by: Sameera Scruggs M.D. on 07/30/2021 at 14:50 Approved by: Sameera Scruggs M.D. on 07/30/2021 at 14:51
== END ==
PROVIDERS: PCP Family Medicine; Referring Provider Family Medicine; Visit Provider Family Medicine
DX: M25.561 Pain in right knee (principal); M25.461 Effusion, right knee
CPT/HCPCS: 73562

== ENCOUNTER → 2021-08-05 14:34 | Outpatient (CLI) | payer OTHER, SELFPAY | PROVIDERS: PCP Family Medicine; Referring Provider Nurse Practitioner Family; Visit Provider Nurse Practitioner Family | DX: L08.9 Local infection of the skin and subcutaneous tissue, unspecified (principal); L97.819 Non-pressure chronic ulcer of other part of right lower leg with unspecified severity | CPT/HCPCS: 87070; 87075; 87077; 87147; 87185; 87186; 87205 ==

== ENCOUNTER → 2021-08-08 12:39 | Outpatient (CLI) | payer OTHER, SELFPAY ==
--- NOTE | 2021-08-08 12:42 | DI.MRI.S_ITS ---
PROCEDURE: MR KNEE RT WO CON INDICATIONS: significant right knee pain and swelling after fall with pop TECHNIQUE: Noncontrast sagittal PD fast spin echo and T2 fast spin echo with fat saturation, sagittal 3-D FLASH with fat saturation; coronal T1 spin echo and PD fast spin echo with fat saturation, and axial PD fast spin echo with fat saturation through the knee. COMPARISON: [facility], CR, XR KNEE RT 3V, 07/30/2021, 9:40. FINDINGS: Image quality: Excellent. Moderate diffuse subcutaneous ill-defined STIR signal elevation, consistent with edema versus soft tissue injury. Menisci: Linear oblique high signal intensity traverses the medial meniscal body and posterior horn, demonstrating inferior articular surface extension. Linear high signal intensity within the lateral meniscal body is present without definite articular surface extension. Cruciate ligaments: The anterior and posterior cruciate ligaments appear intact. Medial structures: The medial collateral ligament appears intact. Visualized portions of the pes anserinus tendons appear normal. No abnormal bursal fluid. Lateral structures: The lateral collateral ligament, long and short heads of the biceps femoris tendon appear intact. The popliteus tendon appears normal. Iliotibial band appears normal. Anterior structures: There is full-thickness tearing of the quadriceps tendon at the patellar insertion site, with roughly 7 mm of proximal retraction of the torn quadriceps tendon.. There is associated redundancy of the patellar tendon. Mild T2 signal elevation within the patellar tendon at the patellar insertion site. Patellar alignment is normal. No femoral trochlear dysplasia or ventral trochlear prominence. No edema in the infrapatellar fat pad. Bones and cartilage: No displaced fracture. Mild ill-defined T2 signal elevation within the fibular head and neck, consistent with contusion. Moderate articular cartilage loss diffusely overlies the weight-bearing aspects of the medial femoral condyle, medial tibial plateau, medial and lateral patellar facets. Joint space: There is a small knee joint effusion and a small ganglion cyst along the popliteus. No Faria's cyst. Normal appearing synovial plicae are incidentally noted. IMPRESSION: 1. Full-thickness tearing of the quadriceps tendon. 2. Patellar tendinopathy. 3. Contusion of the fibular head and neck. 4. Medial meniscal tear. 5. Tricompartmental osteoarthritis with associated articular cartilage loss. Dictated by: Enmanuel Nieto M.D. on 08/10/2021 at 8:21 Approved by: Enmanuel Nieto M.D. on 08/10/2021 at 8:25
== END ==
PROVIDERS: PCP Family Medicine; Referring Provider Family Medicine; Visit Provider Family Medicine
DX: S76.111A Strain of right quadriceps muscle, fascia and tendon, initial encounter (principal); S83.241A Other tear of medial meniscus, current injury, right knee, initial encounter; M25.561 Pain in right knee; S80.01XA Contusion of right knee, initial encounter; M17.11 Unilateral primary osteoarthritis, right knee; W19.XXXA Unspecified fall, initial encounter
CPT/HCPCS: 73721

== ENCOUNTER → 2021-09-22 10:46 | Outpatient (CLI) | payer OTHER, SELFPAY | PROVIDERS: PCP Family Medicine; Referring Provider Nurse Practitioner Family; Visit Provider Family Medicine | DX: I87.2 Venous insufficiency (chronic) (peripheral) (principal); L97.812 Non-pressure chronic ulcer of other part of right lower leg with fat layer exposed; L08.9 Local infection of the skin and subcutaneous tissue, unspecified; R60.0 Localized edema; Z72.0 Tobacco use; Z59.89 Other problems related to housing and economic circumstances | CPT/HCPCS: 11042; 87070; 87075; 87077; 87147; 87186; 87205; 93922; 99213 ==

== ENCOUNTER → 2021-09-29 13:01 | Outpatient (CLI) | payer OTHER, SELFPAY | PROVIDERS: PCP Family Medicine; Referring Provider Nurse Practitioner Family; Visit Provider Family Medicine | DX: I87.2 Venous insufficiency (chronic) (peripheral) (principal); L97.812 Non-pressure chronic ulcer of other part of right lower leg with fat layer exposed; B95.62 Methicillin resistant Staphylococcus aureus infection as the cause of diseases classified elsewhere; R60.0 Localized edema; Z72.0 Tobacco use; Z59.89 Other problems related to housing and economic circumstances | CPT/HCPCS: 11042; 99213 ==

== ENCOUNTER → 2021-10-13 10:43 | Outpatient (CLI) | payer OTHER, SELFPAY | PROVIDERS: PCP Family Medicine; Referring Provider Nurse Practitioner Family; Visit Provider Family Medicine | DX: I87.2 Venous insufficiency (chronic) (peripheral) (principal); L97.812 Non-pressure chronic ulcer of other part of right lower leg with fat layer exposed | CPT/HCPCS: 29580 ==

== ENCOUNTER → 2021-10-20 14:07 | Outpatient (CLI) | payer OTHER, SELFPAY | PROVIDERS: PCP Family Medicine; Referring Provider Family Medicine; Visit Provider Family Medicine | DX: I87.2 Venous insufficiency (chronic) (peripheral) (principal); L97.812 Non-pressure chronic ulcer of other part of right lower leg with fat layer exposed | CPT/HCPCS: 29581 ==

== ENCOUNTER → 2021-10-27 10:46 | Outpatient (CLI) | payer OTHER, SELFPAY | PROVIDERS: PCP Family Medicine; Referring Provider Family Medicine; Visit Provider Family Medicine | DX: I87.2 Venous insufficiency (chronic) (peripheral) (principal); L97.812 Non-pressure chronic ulcer of other part of right lower leg with fat layer exposed; R60.0 Localized edema; Z72.0 Tobacco use | CPT/HCPCS: 11042; 87070; 87075; 87077; 87147; 87186; 87205; 99213 ==

== ENCOUNTER → 2021-11-03 11:22 | Outpatient (CLI) | payer OTHER, SELFPAY | PROVIDERS: PCP Family Medicine; Referring Provider Family Medicine; Visit Provider Family Medicine | DX: I87.2 Venous insufficiency (chronic) (peripheral) (principal); L97.812 Non-pressure chronic ulcer of other part of right lower leg with fat layer exposed; L08.89 Other specified local infections of the skin and subcutaneous tissue; B95.7 Other staphylococcus as the cause of diseases classified elsewhere; R60.0 Localized edema; Z72.0 Tobacco use | CPT/HCPCS: 97597; 99214 ==

== ENCOUNTER → 2021-11-10 11:27 | Outpatient (CLI) | payer OTHER, SELFPAY | PROVIDERS: PCP Family Medicine; Referring Provider Family Medicine; Visit Provider Family Medicine | DX: I87.2 Venous insufficiency (chronic) (peripheral) (principal); L97.812 Non-pressure chronic ulcer of other part of right lower leg with fat layer exposed; L08.89 Other specified local infections of the skin and subcutaneous tissue; B95.7 Other staphylococcus as the cause of diseases classified elsewhere; R60.0 Localized edema; Z72.0 Tobacco use | CPT/HCPCS: 97597 ==

== ENCOUNTER → 2021-11-17 14:45 | Outpatient (CLI) | payer OTHER, SELFPAY | PROVIDERS: PCP Family Medicine; Referring Provider Family Medicine; Visit Provider Family Medicine | DX: L97.812 Non-pressure chronic ulcer of other part of right lower leg with fat layer exposed (principal); R60.0 Localized edema; Z72.0 Tobacco use | CPT/HCPCS: 97597 ==

== ENCOUNTER → 2021-11-24 14:29 | Outpatient (CLI) | payer OTHER, SELFPAY | PROVIDERS: PCP Family Medicine; Referring Provider Family Medicine; Visit Provider Family Medicine | DX: I87.331 Chronic venous hypertension (idiopathic) with ulcer and inflammation of right lower extremity (principal); L97.812 Non-pressure chronic ulcer of other part of right lower leg with fat layer exposed; R60.0 Localized edema; Z72.0 Tobacco use | CPT/HCPCS: 97597; 99213 ==

== ENCOUNTER → 2021-12-01 13:54 | Outpatient (CLI) | payer OTHER, SELFPAY | PROVIDERS: PCP Family Medicine; Referring Provider Family Medicine; Visit Provider Family Medicine | DX: I87.2 Venous insufficiency (chronic) (peripheral) (principal); L97.812 Non-pressure chronic ulcer of other part of right lower leg with fat layer exposed; R60.0 Localized edema; Z72.0 Tobacco use | CPT/HCPCS: 11042 ==

== ENCOUNTER → 2021-12-08 13:57 | Outpatient (CLI) | payer OTHER, SELFPAY | PROVIDERS: PCP Family Medicine; Referring Provider Family Medicine; Visit Provider Family Medicine | DX: I87.2 Venous insufficiency (chronic) (peripheral) (principal); L97.812 Non-pressure chronic ulcer of other part of right lower leg with fat layer exposed; R60.0 Localized edema; Z72.0 Tobacco use | CPT/HCPCS: 29581; 99213 ==

== ENCOUNTER → 2021-12-15 11:27 | Outpatient (CLI) | payer OTHER, SELFPAY | PROVIDERS: PCP Family Medicine; Referring Provider Family Medicine; Visit Provider Family Medicine | DX: I87.2 Venous insufficiency (chronic) (peripheral) (principal); L97.812 Non-pressure chronic ulcer of other part of right lower leg with fat layer exposed; R60.0 Localized edema; Z72.0 Tobacco use | CPT/HCPCS: 29581; 99212 ==

== ENCOUNTER → 2021-12-22 10:48 | Outpatient (CLI) | payer OTHER, SELFPAY | PROVIDERS: PCP Family Medicine; Referring Provider Family Medicine; Visit Provider Family Medicine | DX: I87.2 Venous insufficiency (chronic) (peripheral) (principal); L97.812 Non-pressure chronic ulcer of other part of right lower leg with fat layer exposed; L08.9 Local infection of the skin and subcutaneous tissue, unspecified; R60.0 Localized edema; R59.0 Localized enlarged lymph nodes; Z72.0 Tobacco use | CPT/HCPCS: 87070; 87075; 87077; 87147; 87186; 87205; 97597; 99213; 99214 ==

== ENCOUNTER → 2021-12-29 11:48 | Outpatient (CLI) | payer OTHER, SELFPAY | PROVIDERS: PCP Family Medicine; Referring Provider Family Medicine; Visit Provider Family Medicine | DX: I87.2 Venous insufficiency (chronic) (peripheral) (principal); L97.812 Non-pressure chronic ulcer of other part of right lower leg with fat layer exposed; L08.89 Other specified local infections of the skin and subcutaneous tissue; B95.62 Methicillin resistant Staphylococcus aureus infection as the cause of diseases classified elsewhere; B95.7 Other staphylococcus as the cause of diseases classified elsewhere; R60.0 Localized edema; R59.0 Localized enlarged lymph nodes; Z72.0 Tobacco use | CPT/HCPCS: 29581; 99213 ==

== ENCOUNTER → 2022-01-05 12:04 | Outpatient (CLI) | payer OTHER, SELFPAY | PROVIDERS: PCP Family Medicine; Referring Provider Family Medicine; Visit Provider Family Medicine | DX: I87.2 Venous insufficiency (chronic) (peripheral) (principal); L97.812 Non-pressure chronic ulcer of other part of right lower leg with fat layer exposed | CPT/HCPCS: 29581 ==

== ENCOUNTER → 2022-01-12 11:32 | Outpatient (CLI) | payer OTHER, SELFPAY | PROVIDERS: PCP Family Medicine; Referring Provider Family Medicine; Visit Provider Family Medicine | DX: I87.2 Venous insufficiency (chronic) (peripheral) (principal); L97.812 Non-pressure chronic ulcer of other part of right lower leg with fat layer exposed; L08.9 Local infection of the skin and subcutaneous tissue, unspecified; R60.0 Localized edema; R59.0 Localized enlarged lymph nodes; Z72.0 Tobacco use | CPT/HCPCS: 87070; 87075; 87205; 99214 ==

== ENCOUNTER → 2022-01-19 13:52 | Outpatient (CLI) | payer OTHER, SELFPAY | PROVIDERS: PCP Family Medicine; Referring Provider Family Medicine; Visit Provider Family Medicine | DX: I87.2 Venous insufficiency (chronic) (peripheral) (principal); L97.812 Non-pressure chronic ulcer of other part of right lower leg with fat layer exposed; R60.0 Localized edema; R59.0 Localized enlarged lymph nodes; Z72.0 Tobacco use | CPT/HCPCS: 29581; 99212 ==

== ENCOUNTER → 2022-01-26 11:55 | Outpatient (CLI) | payer OTHER, SELFPAY | PROVIDERS: PCP Family Medicine; Referring Provider Family Medicine; Visit Provider Family Medicine | DX: I87.2 Venous insufficiency (chronic) (peripheral) (principal); L97.812 Non-pressure chronic ulcer of other part of right lower leg with fat layer exposed; R60.0 Localized edema; R59.0 Localized enlarged lymph nodes; Z72.0 Tobacco use | CPT/HCPCS: 11042; 99212 ==

== ENCOUNTER → 2022-02-02 11:11 | Outpatient (CLI) | payer OTHER, SELFPAY | PROVIDERS: PCP Family Medicine; Referring Provider Nurse Practitioner Family; Visit Provider Family Medicine | DX: I87.2 Venous insufficiency (chronic) (peripheral) (principal); L97.812 Non-pressure chronic ulcer of other part of right lower leg with fat layer exposed; R60.0 Localized edema; R59.0 Localized enlarged lymph nodes; Z72.0 Tobacco use | CPT/HCPCS: 99212; 99213 ==

== ENCOUNTER → 2022-02-16 11:06 | Outpatient (CLI) | payer OTHER, SELFPAY | PROVIDERS: PCP Family Medicine; Referring Provider Family Medicine; Visit Provider Family Medicine | DX: I87.2 Venous insufficiency (chronic) (peripheral) (principal); L97.812 Non-pressure chronic ulcer of other part of right lower leg with fat layer exposed; Z72.0 Tobacco use; R59.0 Localized enlarged lymph nodes | CPT/HCPCS: 99212; 99213 ==

== ENCOUNTER → 2022-03-02 11:20 | Outpatient (CLI) | payer OTHER, SELFPAY | PROVIDERS: PCP Family Medicine; Referring Provider Family Medicine; Visit Provider Family Medicine | DX: I87.2 Venous insufficiency (chronic) (peripheral) (principal); L97.812 Non-pressure chronic ulcer of other part of right lower leg with fat layer exposed; R59.0 Localized enlarged lymph nodes; F17.210 Nicotine dependence, cigarettes, uncomplicated | CPT/HCPCS: 99212; 99213 ==

== ENCOUNTER → 2022-03-23 10:40 | Outpatient (CLI) | payer OTHER, SELFPAY | PROVIDERS: PCP Family Medicine; Referring Provider Family Medicine; Visit Provider Family Medicine | DX: I87.2 Venous insufficiency (chronic) (peripheral) (principal) | CPT/HCPCS: 99212 ==

== ENCOUNTER → 2022-03-30 11:11 | Outpatient (CLI) | payer OTHER, SELFPAY | PROVIDERS: PCP Family Medicine; Referring Provider Family Medicine; Visit Provider Family Medicine | DX: I87.2 Venous insufficiency (chronic) (peripheral) (principal); L97.812 Non-pressure chronic ulcer of other part of right lower leg with fat layer exposed | CPT/HCPCS: 99213 ==

== ENCOUNTER → 2022-04-13 11:10 | Outpatient (CLI) | payer OTHER, SELFPAY | PROVIDERS: PCP Family Medicine; Referring Provider Family Medicine; Visit Provider Family Medicine | DX: I87.2 Venous insufficiency (chronic) (peripheral) (principal); L97.812 Non-pressure chronic ulcer of other part of right lower leg with fat layer exposed; R59.0 Localized enlarged lymph nodes; F17.210 Nicotine dependence, cigarettes, uncomplicated | CPT/HCPCS: 99212; 99213 ==

== ENCOUNTER → 2022-04-27 10:24 | Outpatient (CLI) | payer OTHER, SELFPAY | PROVIDERS: PCP Family Medicine; Referring Provider Nurse Practitioner Family; Visit Provider Family Medicine | DX: I87.2 Venous insufficiency (chronic) (peripheral) (principal); L97.812 Non-pressure chronic ulcer of other part of right lower leg with fat layer exposed; Z72.0 Tobacco use; R59.0 Localized enlarged lymph nodes | CPT/HCPCS: 99212 ==

== ENCOUNTER → 2022-05-18 10:24 | Outpatient (CLI) | payer OTHER, SELFPAY | PROVIDERS: PCP Family Medicine; Referring Provider Nurse Practitioner Family; Visit Provider Family Medicine | DX: I87.2 Venous insufficiency (chronic) (peripheral) (principal); F17.210 Nicotine dependence, cigarettes, uncomplicated | CPT/HCPCS: 99212; 99213 ==

== ENCOUNTER 2024-02-03 13:43 | Emergency (ER) | payer OTHER, SELFPAY ==
[2024-02-03] VITALS (17 sets, daily range): BP systolic 159–196; BP diastolic 82–125; PULSE 63–98; RESP 18–29; TEMP 36.7; O2SAT 93–97; BMI 26.4
--- NOTE | 2024-02-03 13:54 | EKG_ITS ---
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
--- NOTE | 2024-02-03 14:05 | DI.CT.S_ITS ---
PROCEDURE: CT HEAD/BRAIN WO CON INDICATIONS: fall with head injury TECHNIQUE: Noncontrast 4.5 mm thick angled axial sections acquired from the foramen magnum to the vertex, with coronal and sagittal reformats. For radiation dose reduction, the following was used: automated exposure control, adjustment of mA and/or kV according to patient size. COMPARISON: [facility], CT, CT CERVICAL SPINE WO CON, 02/03/2024, 14:25. FINDINGS: Image quality: Diagnostic. CSF spaces: Basal cisterns are patent. No extra-axial fluid collections. The ventricles are symmetric in size and shape. Brain: No intracranial bleeds or masses. There is cerebral volume loss for age, with resultant ventricular and sulcal prominence. There are periventricular and deep white matter chronic small vessel ischemic changes. There is intracranial internal carotid artery atherosclerosis. Skull and face: Calvarium and visualized facial bones appear intact, without suspicious lesions. Note is made of the previously identified nondisplaced right paramedian C2 ring fracture located posteriorly. Please refer to cervical CT scanning for further discussion including identification of a C2 dens base fracture. Sinuses: Visualized sinuses and mastoids are clear. IMPRESSION: No acute intracranial pathology. C2 dens fracture, not visualized. C2 posterior right paramedian ring fracture partially visualized. Please refer to neck CT same day. Dictated by: Tho Hunt M.D. on 02/03/2024 at 14:57 Approved by: Tho Hunt M.D. on 02/03/2024 at 14:58
--- NOTE | 2024-02-03 14:05 | DI.CT.S_ITS ---
PROCEDURE: CT CERVICAL SPINE WO CON INDICATIONS: fall with neck pain TECHNIQUE: Noncontrast 3 mm thick sections acquired from the skull base to the T4 level. Sagittal and coronal reformats were then constructed. For radiation dose reduction, the following was used: automated exposure control, adjustment of mA and/or kV according to patient size. COMPARISON: None. FINDINGS: Image quality: Excellent. Bones: No dislocations. Visualized superior ribs are intact. There is a dens fracture at the base of the dens involving C2, vertically by approximately 2-3 mm. This is also associated a posterior right paramedian vertically oriented nondisplaced C2 ring fracture and no other trauma is seen. Dens itself is not displaced posteriorly and the foramen magnum is patent. Degenerative disc disease and facet osteoarthritis are prominent inferiorly possibly with degenerative fusion at the facet joints in several areas. Soft tissues: Prevertebral soft tissues are normal in thickness. No paravertebral hematomas. No apical pneumothoraces. IMPRESSION: Acute appearing C2 fracture involving the base of the dens and the posterior paramedian midline the C2 ring. No current spinal stenosis is associated but the fracture is potentially unstable. Findings were immediately called to and discussed with the emergency room physician caring for the patient. Dictated by: Tho Hunt M.D. on 02/03/2024 at 14:49 Approved by: Tho Hunt M.D. on 02/03/2024 at 14:56
--- NOTE | 2024-02-03 14:49 | ED_ITS ---
HPI - Fall <Norris Jimenez DO - Last Filed: 02/04/24 07:02> General Chief Complaint: Fall Stated Complaint: neck injury t-2, fall Time Seen by Provider: 02/03/24 13:58 Source: patient Mode of arrival: Ambulatory History of Present Illness HPI Narrative: Patient is a 73-year-old male. History of high blood pressure. Not on blood thinners. States yesterday he was out in his garden picking green beans. He states that he was bent over and lost his balance and fell forward and hit his head on the ground. No loss of consciousness. No extremity injuries. Has had pain in the middle of his neck since then and he also states he was getting a lot of clicking and popping. The pain has been continued which point brought him to the emergency department today. He did arrived in a soft collar. He reports no numbness and tingling in his upper and lower extremities. No vision changes. No headaches. No problems breathing. Related Data Previous Rx's Medication Instructions Recorded hydrochlorothiazide 12.5 mg tablet 12.5 mg PO DAILY #90 tabs 02/01/24 Allergies Allergy/AdvReac Type Severity Reaction Status Date / Time doxycycline Allergy Intermediate Rash, Verified 02/03/24 13:54 tingling, and blisters to hands sulfamethoxazole AdvReac Verified 02/03/24 13:54 [From Bactrim] trimethoprim [From Bactrim] AdvReac Verified 02/03/24 13:54 Review of Systems <DO Loren Jurado Last Filed: 02/04/24 07:02> Review of Systems ROS Unobtainable: All systems reviewed & are unremarkable except as noted in HPI and below Patient History <DO Loren Jurado Last Filed: 02/04/24 07:02> Medical History Right knee pain Non-pressure chronic ulcer of other part of right lower leg with unspecified severity Local infection of the skin and subcutaneous tissue, unspecified Peripheral vascular disease Hyperlipidemia Nicotine dependence Venous stasis ulcer Personal history of smoking Non-healing wound Family History Father Pneumonia Social History Smoking Status: Current some day smoker Smoking Status: Current some day smoker tobacco type: cigars alcohol intake frequency: 0-2 drinks per day Substance Use Type: does not use Exam <Norris Jimenez DO - Last Filed: 02/04/24 07:02> Initial Vital Signs Initial Vital Signs: Vital Signs Blood Pressure 182/90 H 02/03/24 13:48 Const General: cooperative, comfortable and No ill appearing HENND Head: abrasion (Superficial abrasion for him) Eyes General: Yes appearance normal, both eyes and all related structures Resp Effort & Inspection: normal respiratory effort Auscultation: clear to auscultation bilaterally Cardio Rate: regular rate Rhythm: regular rhythm GI Inspection: non-distended Neuro General: patient alert, patient awake, patient oriented x3 and moves all extremities Cognition: normal cognition Speech: speech normal Gait: normal gait Motor: muscle tone normal throughout Sensory Exam: no sensory deficits noted Extrem Other: No gross deformities <Meli Kruse MD - Last Filed: 02/03/24 19:57> Initial Vital Signs Initial Vital Signs: Vital Signs Blood Pressure 182/90 H 02/03/24 13:48 Scores <Norris Jimenez DO - Last Filed: 02/04/24 07:02> GCS Rosanne coma scale eye opening: Spontaneous Rosanne coma scale verbal response: Orientated Rosanne coma scale motor response: Obey commands [place] coma scale total score: 15 <Meli Kruse MD - Last Filed: 02/03/24 19:57> GCS [place] coma scale total score: 15 Course <Norris Jimenez DO - Last Filed: 02/04/24 07:02> Orders Ordered: Discontinued Medications Morphine Sulfate (Morphine 4 Mg/Ml Inj) 4 mg IV NOW ONE Stop: 02/03/24 18:33 Last Admin: 02/03/24 18:44 Dose: 4 mg Documented By: KARLO Vital Signs Vital signs: Vital Signs - 8 hr 02/03/24 13:48 02/03/24 13:49 02/03/24 13:51 Temperature 98.1 F Pulse Rate 97 H 98 H Respiratory Rate 18 Blood Pressure 182/90 H 182/90 H Pulse Oximetry 96 96 Oxygen Delivery Method Room Air 02/03/24 14:00 02/03/24 14:00 02/03/24 14:34 Temperature Pulse Rate 87 80 Respiratory Rate 23 25 H Blood Pressure 161/82 H Pulse Oximetry 93 95 Oxygen Delivery Method 02/03/24 14:35 02/03/24 14:35 02/03/24 14:39 Temperature Pulse Rate 79 78 Respiratory Rate 27 H 25 H Blood Pressure 196/96 H Pulse Oximetry 95 95 Oxygen Delivery Method 02/03/24 14:39 02/03/24 15:00 02/03/24 15:00 Temperature Pulse Rate 75 Respiratory Rate 29 H Blood Pressure 167/87 H 159/88 H Pulse Oximetry 95 Oxygen Delivery Method 02/03/24 15:30 02/03/24 15:30 02/03/24 16:00 Temperature Pulse Rate 73 72 Respiratory Rate Blood Pressure 187/90 H Pulse Oximetry 93 95 Oxygen Delivery Method 02/03/24 16:00 02/03/24 16:30 02/03/24 16:30 Temperature Pulse Rate 68 Respiratory Rate 25 H Blood Pressure 189/90 H 175/86 H Pulse Oximetry 96 Oxygen Delivery Method 02/03/24 17:00 02/03/24 17:00 02/03/24 17:30 Temperature Pulse Rate 67 63 Respiratory Rate 24 24 Blood Pressure 176/86 H Pulse Oximetry 95 96 Oxygen Delivery Method 02/03/24 17:30 02/03/24 17:58 02/03/24 17:58 Temperature Pulse Rate 66 Respiratory Rate 25 H Blood Pressure 166/82 H 172/125 H Pulse Oximetry 97 Oxygen Delivery Method 02/03/24 18:00 02/03/24 18:00 02/03/24 18:26 Temperature Pulse Rate 70 66 Respiratory Rate 26 H Blood Pressure 193/91 H Pulse Oximetry 96 97 Oxygen Delivery Method 02/03/24 18:26 02/03/24 18:30 02/03/24 18:30 Temperature Pulse Rate 66 Respiratory Rate Blood Pressure 182/86 H 177/87 H Pulse Oximetry 97 Oxygen Delivery Method <Meli Kruse MD - Last Filed: 02/03/24 19:57> Orders Ordered: Discontinued Medications Morphine Sulfate (Morphine 4 Mg/Ml Inj) 4 mg IV NOW ONE Stop: 02/03/24 18:33 Last Admin: 02/03/24 18:44 Dose: 4 mg Documented By: KARLO Vital Signs Vital signs: Vital Signs - 8 hr 02/03/24 13:48 02/03/24 13:49 02/03/24 13:51 Temperature 98.1 F Pulse Rate 97 H 98 H Respiratory Rate 18 Blood Pressure 182/90 H 182/90 H Pulse Oximetry 96 96 Oxygen Delivery Method Room Air 02/03/24 14:00 02/03/24 14:00 02/03/24 14:34 Temperature Pulse Rate 87 80 Respiratory Rate 23 25 H Blood Pressure 161/82 H Pulse Oximetry 93 95 Oxygen Delivery Method 02/03/24 14:35 02/03/24 14:35 02/03/24 14:39 Temperature Pulse Rate 79 78 Respiratory Rate 27 H 25 H Blood Pressure 196/96 H Pulse Oximetry 95 95 Oxygen Delivery Method 02/03/24 14:39 02/03/24 15:00 02/03/24 15:00 Temperature Pulse Rate 75 Respiratory Rate 29 H Blood Pressure 167/87 H 159/88 H Pulse Oximetry 95 Oxygen Delivery Method 02/03/24 15:30 02/03/24 15:30 02/03/24 16:00 Temperature Pulse Rate 73 72 Respiratory Rate Blood Pressure 187/90 H Pulse Oximetry 93 95 Oxygen Delivery Method 02/03/24 16:00 02/03/24 16:30 02/03/24 16:30 Temperature Pulse Rate 68 Respiratory Rate 25 H Blood Pressure 189/90 H 175/86 H Pulse Oximetry 96 Oxygen Delivery Method 02/03/24 17:00 02/03/24 17:00 02/03/24 17:30 Temperature Pulse Rate 67 63 Respiratory Rate 24 24 Blood Pressure 176/86 H Pulse Oximetry 95 96 Oxygen Delivery Method 02/03/24 17:30 02/03/24 17:58 02/03/24 17:58 Temperature Pulse Rate 66 Respiratory Rate 25 H Blood Pressure 166/82 H 172/125 H Pulse Oximetry 97 Oxygen Delivery Method 02/03/24 18:00 02/03/24 18:00 02/03/24 18:26 Temperature Pulse Rate 70 66 Respiratory Rate 26 H Blood Pressure 193/91 H Pulse Oximetry 96 97 Oxygen Delivery Method 02/03/24 18:26 02/03/24 18:30 02/03/24 18:30 Temperature Pulse Rate 66 Respiratory Rate Blood Pressure 182/86 H 177/87 H Pulse Oximetry 97 Oxygen Delivery Method MDM - Fall <Norris Jimenez, DO - Last Filed: 02/04/24 07:02> Lab Data 02/03/24 18:15 02/03/24 18:15 Labs: Lab Results 02/03/24 Range/Units 18:15 WBC 10.6 (4.5-11.0) X10^3/uL RBC 4.36 L (4.5-5.9) X10^6/uL Hgb 13.9 (13.5-17.5) g/dL Hct 40.5 L (41-53) % MCV 93.0 (80-100) fL MCH 32.0 (26-34) PG MCHC 34.4 (30-36) % RDW 14.2 (11.6-14.8) % Plt Count 308 (150-400) X10^3/uL Neut % (Auto) 78.0 H (50-75) % Lymph % (Auto) 14.6 L (25-40) % [place] % (Auto) 5.6 (3-14) % Eos % (Auto) 0.9 L (2-4) % Baso % (Auto) 0.9 (0-2) % Neut # (Auto) 8300 H (2111-4677) /uL Lymph # (Auto) 1600 (8197-3325) /uL [place] # (Auto) 600 (0-900) /uL Eos # (Auto) 100 (0-450) /uL Baso # (Auto) 100 (0-100) /uL Sodium 136 L (137-145) mmol/L Potassium 4.0 (3.4-5.1) mmol/L Chloride 107 (98-107) mmol/L Carbon Dioxide 25 (22-32) mmol/L BUN 13 (9-20) mg/dL Creatinine 0.75 (0.66-1.25) mg/dL Estimated GFR > 60 (>60) mL/min BUN/Creatinine Ratio 17.3 (6-22) Glucose 88 (80-110) mg/dL Calcium 8.5 (8.4-10.2) mg/dL Total Bilirubin 0.9 (0.2-1.3) mg/dL AST 21 (17-59) IU/L ALT 17 (<50) IU/L Alkaline Phosphatase 58 (38-126) U/L Total Protein 6.7 (6.3-8.2) g/dL Albumin 3.9 (3.5-5.0) g/dL Globulin 2.8 (1.7-4.1) g/dL Albumin/Globulin Ratio 1.4 (1.0-2.8) Imaging Data CT - cervical spine: Radiologist's Impression: PROCEDURE: CT CERVICAL SPINE WO CON INDICATIONS: fall with neck pain TECHNIQUE: Noncontrast 3 mm thick sections acquired from the skull base to the T4 level. Sagittal and coronal reformats were then constructed. For radiation dose reduction, the following was used: automated exposure control, adjustment of mA and/or kV according to patient size. COMPARISON: None. FINDINGS: Image quality: Excellent. Bones: No dislocations. Visualized superior ribs are intact. There is a dens fracture at the base of the dens involving C2, vertically by approximately 2-3 mm. This is also associated a posterior right paramedian vertically oriented nondisplaced C2 ring fracture and no other trauma is seen. Dens itself is not displaced posteriorly and the foramen magnum is patent. Degenerative disc disease and facet osteoarthritis are prominent inferiorly possibly with degenerative fusion at the facet joints in several areas. Soft tissues: Prevertebral soft tissues are normal in thickness. No paravertebral hematomas. No apical pneumothoraces. IMPRESSION: Acute appearing C2 fracture involving the base of the dens and the posterior paramedian midline the C2 ring. No current spinal stenosis is associated but the fracture is potentially unstable. Findings were immediately called to and discussed with the emergency room physician caring for the patient. CT scan - head: Radiologist's Impression: PROCEDURE: CT HEAD/BRAIN WO CON INDICATIONS: fall with head injury TECHNIQUE: Noncontrast 4.5 mm thick angled axial sections acquired from the foramen magnum to the vertex, with coronal and sagittal reformats. For radiation dose reduction, the following was used: automated exposure control, adjustment of mA and/or kV according to patient size. COMPARISON: [facility], CT, CT CERVICAL SPINE WO CON, 02/03/2024, 14:25. FINDINGS: Image quality: Diagnostic. CSF spaces: Basal cisterns are patent. No extra-axial fluid collections. The ventricles are symmetric in size and shape. Brain: No intracranial bleeds or masses. There is cerebral volume loss for age, with resultant ventricular and sulcal prominence. There are periventricular and deep white matter chronic small vessel ischemic changes. There is intracranial internal carotid artery atherosclerosis. Skull and face: Calvarium and visualized facial bones appear intact, without suspicious lesions. Note is made of the previously identified nondisplaced right paramedian C2 ring fracture located posteriorly. Please refer to cervical CT scanning for further discussion including identification of a C2 dens base fracture. Sinuses: Visualized sinuses and mastoids are clear. IMPRESSION: No acute intracranial pathology. C2 dens fracture, not visualized. C2 posterior right paramedian ring fracture partially visualized. Please refer to neck CT same day. C spine x-ray: Radiologist's Impression: PROCEDURE: XR CERVICAL SPINE 2V OR 3V INDICATIONS: C2 dens fracture TECHNIQUE: 5 view(s) of the cervical spine were acquired. COMPARISON: [facility], CT, CT CERVICAL SPINE WO CON, 02/03/2024, 14:25. FINDINGS: Bones: No previously nonvisualized fractures to the T1 level than the fracture at base of C2 dens. The posterior right paramedian midline nondisplaced fracture at the C2 ring cannot visualized plain film imaging. Please refer to the prior CT earlier same day. The lateral masses of C1 appear intact on the odontoid view. No suspicious bony lesions. Soft tissues: No prevertebral soft tissue swelling. IMPRESSION: No change in degree at the C2 dens base fracture. Noted on CT scanning there also is a posterior paramedian C2 ring fracture almost exactly midline dorsally which cannot be visualized by plain film. ECG Data Attestation: I personally reviewed and interpreted this ECG as follows: Interpretation: Sinus rhythm Ventricular rate 90 Normal axis Normal QRS Normal QTC No ST T wave changes MDM Narrative Medical decision making narrative: Patient did fall yesterday. He has had midline neck pain since that time. No specific neurologic complaints. No numbness or tingling in his upper lower extremities. The CT scan of the cervical spine did show a dens fracture with a posterior C2 fracture. Patient was placed in a [place] collar. I did discuss the case with Dr. Borges with orthopedic spine surgery at [facility] who recommended standing x-rays in the collar. Patient remains asymptomatic. Will recontact Dr. Borges after the x-rays to have him evaluate the studies to discuss further disposition. Care turned over to Dr. Kruse to follow up this. <Meli Kruse MD - Last Filed: 02/03/24 19:57> Lab Data Labs: Lab Results 02/03/24 Range/Units 18:15 WBC 10.6 (4.5-11.0) X10^3/uL RBC 4.36 L (4.5-5.9) X10^6/uL Hgb 13.9 (13.5-17.5) g/dL Hct 40.5 L (41-53) % MCV 93.0 (80-100) fL MCH 32.0 (26-34) PG MCHC 34.4 (30-36) % RDW 14.2 (11.6-14.8) % Plt Count 308 (150-400) X10^3/uL Neut % (Auto) 78.0 H (50-75) % Lymph % (Auto) 14.6 L (25-40) % [place] % (Auto) 5.6 (3-14) % Eos % (Auto) 0.9 L (2-4) % Baso % (Auto) 0.9 (0-2) % Neut # (Auto) 8300 H (3846-4666) /uL Lymph # (Auto) 1600 (5324-3738) /uL [place] # (Auto) 600 (0-900) /uL Eos # (Auto) 100 (0-450) /uL Baso # (Auto) 100 (0-100) /uL Sodium 136 L (137-145) mmol/L Potassium 4.0 (3.4-5.1) mmol/L Chloride 107 (98-107) mmol/L Carbon Dioxide 25 (22-32) mmol/L BUN 13 (9-20) mg/dL Creatinine 0.75 (0.66-1.25) mg/dL Estimated GFR > 60 (>60) mL/min BUN/Creatinine Ratio 17.3 (6-22) Glucose 88 (80-110) mg/dL Calcium 8.5 (8.4-10.2) mg/dL Total Bilirubin 0.9 (0.2-1.3) mg/dL AST 21 (17-59) IU/L ALT 17 (<50) IU/L Alkaline Phosphatase 58 (38-126) U/L Total Protein 6.7 (6.3-8.2) g/dL Albumin 3.9 (3.5-5.0) g/dL Globulin 2.8 (1.7-4.1) g/dL Albumin/Globulin Ratio 1.4 (1.0-2.8) Imaging Data CTA - brain/neck: Radiologist's Impression: PROCEDURE: CT ANGIO HEAD AND NECK INDICATIONS: C2 RING FX TECHNIQUE: After the administration of intravenous contrast, 1 mm thick sections acquired from the aortic arch through the [place] of [place]. 3-dimensional casvtfs-cqoofysxg-llfeqhkkuy (MIP) and/or volume rendering reformats were acquired of the central intracranial vasculature and neck separately. For radiation dose reduction, the following was used: automated exposure control, adjustment of mA and/or kV according to patient size. COMPARISON: CT cervical spine 02/03/2024. FINDINGS: Image quality: Streak metal artifact from dental amalgam limits evaluation of surrounding structures.. BRAIN: CSF spaces: Ventricles are normal in size and shape. Basal cisterns are patent. No extra-axial fluid collections. Brain: No significant abnormality of the brain can be seen. Skull and face: Calvarium and facial bones appear intact, without suspicious lesions. Orbits appear normal. Sinuses: Sinuses and mastoids are clear. HEAD CT ANGIOGRAPHY: Anterior circulation: Intracranial internal carotid arteries are normal in size and flow. The flow within the paired anterior cerebral arteries is normal and symmetric. The flow within the middle cerebral arteries is normal and symmetric. The anterior communicating artery is seen. No aneurysms are seen. Posterior circulation: Visualized portions of the vertebral arteries demonstrate normal caliber, and join to form a normal appearing basilar artery. Flow within the posterior cerebral arteries is normal and symmetric. No aneurysms are seen. NECK CT ANGIOGRAPHY: Carotid system: The great vessels demonstrate a conventional anatomy as they arise from the aortic arch. The origins of the common carotid arteries appear patent. The common carotid arteries demonstrate normal caliber and courses. The bifurcation regions are both widely patent. The internal carotid arteries demonstrate normal calibers and courses. Posterior circulation: The origins of the vertebral arteries both appear widely patent. The more superior extracranial portions of both vertebral arteries also demonstrate normal courses and calibers. There is questionable mild irregularity of the right vertebral artery at the level of C2, for example series 5, image 197). No evidence of dissection or pseudoaneurysm, however evaluation is mildly limited due to adjacent streak metal artifact from dental amalgam. Soft tissues: Visualized neck soft tissues demonstrate no suspicious abnormalities. Bones: No suspicious bony lesions. Redemonstration of dens and C2 posterior ring fracture. Please see separately dictated same day CT cervical spine 02/03/2024. IMPRESSION: No significant intracranial arterial abnormality is seen. Questionable irregularity of the right vertebral artery at the level of C2 which may represent biffl grade 1 vascular injury. Limited evaluation of right vertebral artery at C2-C3 level due to adjacent streak metal artifact from dental amalgam. No definite evidence of dissection or pseudoaneurysm. Redemonstration of known dens fracture and C2 posterior right paramedian ring fracture. Any quantitative measurements of stenosis were performed using NASCET criteria. Approved by: Florencia Parkinson M.D.,Ph.D. on 02/03/2024 at 19:29 MDM Narrative Medical decision making narrative: Patient did fall yesterday. He has had midline neck pain since that time. No specific neurologic complaints. No numbness or tingling in his upper lower extremities. The CT scan of the cervical spine did show a dens fracture with a posterior C2 fracture. Patient was placed in a [place] collar. I did discuss the case with Dr. Borges with orthopedic spine surgery at [facility] who recommended standing x-rays in the collar. Patient remains asymptomatic. Will recontact Dr. Borges after the x-rays to have him evaluate the studies to discuss further disposition. Care turned over to Dr. Kruse to follow up this. Dr. Kruse -discussed patient's case with Dr. Borges of neurosurgical services at [facility]. Dr. Borges states that after reviewing the images the patient's case is borderline and may possibly need surgery. Requested that patient be transferred to [place] for additional evaluation and interventions. Patient and family members updated of neurosurgical recommendations at bedside. Patient in agreement with transfer. Patient to be transferred ER to ER Discharge Plan Departure Patient Disposition: [facility] Clinical Impression: Closed C2 fracture Prescriptions: No Action hydrochlorothiazide 12.5 mg tablet 12.5 mg PO DAILY Qty: 90 3RF Referrals: Silas Barone MD [Primary Care Provider] -
--- NOTE | 2024-02-03 16:09 | DI.RAD.S_ITS ---
PROCEDURE: XR CERVICAL SPINE 2V OR 3V INDICATIONS: C2 dens fracture TECHNIQUE: 5 view(s) of the cervical spine were acquired. COMPARISON: [facility], CT, CT CERVICAL SPINE WO CON, 02/03/2024, 14:25. FINDINGS: Bones: No previously nonvisualized fractures to the T1 level than the fracture at base of C2 dens. The posterior right paramedian midline nondisplaced fracture at the C2 ring cannot visualized plain film imaging. Please refer to the prior CT earlier same day. The lateral masses of C1 appear intact on the odontoid view. No suspicious bony lesions. Soft tissues: No prevertebral soft tissue swelling. IMPRESSION: No change in degree at the C2 dens base fracture. Noted on CT scanning there also is a posterior paramedian C2 ring fracture almost exactly midline dorsally which cannot be visualized by plain film. Dictated by: Tho Hunt M.D. on 02/03/2024 at 16:44 Approved by: Tho Hunt M.D. on 02/03/2024 at 16:47
--- NOTE | 2024-02-03 17:56 | DI.CT.S_ITS ---
PROCEDURE: CT ANGIO HEAD AND NECK INDICATIONS: C2 RING FX TECHNIQUE: After the administration of intravenous contrast, 1 mm thick sections acquired from the aortic arch through the [place] of [place]. 3-dimensional obdfzei-slpgxxtvw-hbqslvpnjx (MIP) and/or volume rendering reformats were acquired of the central intracranial vasculature and neck separately. For radiation dose reduction, the following was used: automated exposure control, adjustment of mA and/or kV according to patient size. COMPARISON: CT cervical spine 02/03/2024. FINDINGS: Image quality: Streak metal artifact from dental amalgam limits evaluation of surrounding structures.. BRAIN: CSF spaces: Ventricles are normal in size and shape. Basal cisterns are patent. No extra-axial fluid collections. Brain: No significant abnormality of the brain can be seen. Skull and face: Calvarium and facial bones appear intact, without suspicious lesions. Orbits appear normal. Sinuses: Sinuses and mastoids are clear. HEAD CT ANGIOGRAPHY: Anterior circulation: Intracranial internal carotid arteries are normal in size and flow. The flow within the paired anterior cerebral arteries is normal and symmetric. The flow within the middle cerebral arteries is normal and symmetric. The anterior communicating artery is seen. No aneurysms are seen. Posterior circulation: Visualized portions of the vertebral arteries demonstrate normal caliber, and join to form a normal appearing basilar artery. Flow within the posterior cerebral arteries is normal and symmetric. No aneurysms are seen. NECK CT ANGIOGRAPHY: Carotid system: The great vessels demonstrate a conventional anatomy as they arise from the aortic arch. The origins of the common carotid arteries appear patent. The common carotid arteries demonstrate normal caliber and courses. The bifurcation regions are both widely patent. The internal carotid arteries demonstrate normal calibers and courses. Posterior circulation: The origins of the vertebral arteries both appear widely patent. The more superior extracranial portions of both vertebral arteries also demonstrate normal courses and calibers. There is questionable mild irregularity of the right vertebral artery at the level of C2, for example series 5, image 197). No evidence of dissection or pseudoaneurysm, however evaluation is mildly limited due to adjacent streak metal artifact from dental amalgam. Soft tissues: Visualized neck soft tissues demonstrate no suspicious abnormalities. Bones: No suspicious bony lesions. Redemonstration of dens and C2 posterior ring fracture. Please see separately dictated same day CT cervical spine 02/03/2024. IMPRESSION: No significant intracranial arterial abnormality is seen. Questionable irregularity of the right vertebral artery at the level of C2 which may represent biffl grade 1 vascular injury. Limited evaluation of right vertebral artery at C2-C3 level due to adjacent streak metal artifact from dental amalgam. No definite evidence of dissection or pseudoaneurysm. Redemonstration of known dens fracture and C2 posterior right paramedian ring fracture. Any quantitative measurements of stenosis were performed using NASCET criteria. Approved by: Florencia Parkinson M.D.,Ph.D. on 02/03/2024 at 19:29
[2024-02-03 18:24] LABS: Add Manual Diff / Slide Review NO; Basophils Absolute Auto 100 /uL (0-100); Basophils Percent Auto 0.9 % (0-2); Eosinophils Absolute Auto 100 /uL (0-450); Eosinophils Percent Auto 0.9 % (2-4); Hematocrit 40.5 % (41-53); Hemoglobin 13.9 g/dL (13.5-17.5); Lymphocytes Absolute Auto 1600 /uL (1100-4500); Lymphocytes Percent Auto 14.6 % (25-40); Mean Corpuscular HGB Conc 34.4 % (30-36); Monocytes Absolute Auto 600 /uL (0-900); Monocytes Percent Auto 5.6 % (3-14); Neutrophils Absolute Auto 8300 /uL (1500-7000); Platelet Count 308 X10^3/uL (150-400); Red Blood Cell Count 4.36 X10^6/uL (4.5-5.9); Red Cell Distribution Width 14.2 % (11.6-14.8); White Blood Cell Count 10.6 X10^3/uL (4.5-11.0)
[2024-02-03 18:40] LABS: Alanine Aminotransferase 17 IU/L (<50); Albumin 3.9 g/dL (3.5-5.0); Albumin Globulin Ratio 1.4 (1.0-2.8); Alkaline Phosphatase 58 U/L (38-126); Aspartate Aminotransferase 21 IU/L (17-59); BUN Creatinine Ratio 17.3 (6-22); Bilirubin Total 0.9 mg/dL (0.2-1.3); Blood Urea Nitrogen 13 mg/dL (9-20); Calcium 8.5 mg/dL (8.4-10.2); Carbon Dioxide 25 mmol/L (22-32); Chloride 107 mmol/L (98-107); Estimated Glomerular Filt Rate > 60 mL/min (>60); Globulin 2.8 g/dL (1.7-4.1); Glucose 88 mg/dL (80-110); HEMOLYSIS < 15 (0-50); Sodium 136 mmol/L (137-145); Total Protein 6.7 g/dL (6.3-8.2)
[2024-02-03] MEDS: MORPHINE 4 MG/ML INJ IV (18:44)
== END 2024-02-03 19:20 | disposition short-term general hospital (02) ==
PROVIDERS: Emergency Provider Emergency Medicine; PCP Family Medicine
DX: S12.100A Unspecified displaced fracture of second cervical vertebra, initial encounter for closed fracture (principal); W18.30XA Fall on same level, unspecified, initial encounter
CPT/HCPCS: 36415; 70450; 70496; 70498; 72040; 72125; 80053; 85025; 93005; 96374; 99284; J2270; Q9967

== ENCOUNTER → 2024-04-05 11:19 | Outpatient (CLI) | payer OTHER, SELFPAY ==
--- NOTE | 2024-04-05 11:25 | DI.RAD.S_ITS ---
PROCEDURE: XR CERVICAL SPINE 2V OR 3V INDICATIONS: status post C1-C2 PSIF, CHECK HARWARE INTEGRITY TECHNIQUE: Three views (s) of the cervical spine were acquired. COMPARISON: [facility], , XR CERVICAL SPINE 2V OR 3V, 02/03/2024, 16:13. FINDINGS: Cervical spine curvature and alignment: Posterior fusion changes at C1-2 provided by pedicle screws , short interbody struts and cerclage wires over the posterior elements appreciated. Expected postsurgical appearance. An oblique type 2 dens fracture in subtotally unified anatomically aligned. There is 3 mm C4 anterior subluxation due to degenerate facet disease.. Disc spaces: Moderate C5-6 and mild C6-7 degenerative disc disease noted. There is moderate C2-3 C3-4 C4-5 degenerative facet disease. Soft tissues: No soft tissue swelling, calcification or mass. IMPRESSION: Type 2 dens fracture anatomically aligned subtotally unified. Posterior surgical fixation hardware is unremarkable. Degeneration Dictated by: Victoriano Lozoya M.D. on 04/06/2024 at 8:05 Approved by: Victoriano Lozoya M.D. on 04/06/2024 at 8:11
== END ==
PROVIDERS: PCP Family Medicine; Referring Provider Nurse Practitioner; Visit Provider Nurse Practitioner
DX: S12.120A Other displaced dens fracture, initial encounter for closed fracture (principal); M47.812 Spondylosis without myelopathy or radiculopathy, cervical region; M50.322 Other cervical disc degeneration at C5-C6 level; Z98.1 Arthrodesis status
CPT/HCPCS: 72040

== ENCOUNTER → 2024-06-28 08:58 | Outpatient (CLI) | payer OTHER, SELFPAY | PROVIDERS: PCP Family Medicine; Referring Provider Family Medicine; Visit Provider Surgery | DX: L97.812 Non-pressure chronic ulcer of other part of right lower leg with fat layer exposed (principal); I87.2 Venous insufficiency (chronic) (peripheral); R60.0 Localized edema; R23.4 Changes in skin texture; M79.661 Pain in right lower leg; I73.9 Peripheral vascular disease, unspecified; F17.210 Nicotine dependence, cigarettes, uncomplicated | CPT/HCPCS: 11042; 87070; 87077; 87147; 87186; 87205; 99213; 99214 ==

== ENCOUNTER → 2024-07-02 10:10 | Outpatient (CLI) | payer OTHER, SELFPAY | LOC: WC 10:11 | PROVIDERS: PCP Family Medicine; Referring Provider Family Medicine; Visit Provider Surgery | DX: L97.812 Non-pressure chronic ulcer of other part of right lower leg with fat layer exposed (principal); I87.2 Venous insufficiency (chronic) (peripheral) | CPT/HCPCS: 29581 ==

== ENCOUNTER → 2024-07-05 15:11 | Outpatient (CLI) | payer OTHER, SELFPAY | PROVIDERS: PCP Family Medicine; Referring Provider Family Medicine; Visit Provider Surgery | DX: L97.812 Non-pressure chronic ulcer of other part of right lower leg with fat layer exposed (principal); I87.2 Venous insufficiency (chronic) (peripheral); I73.9 Peripheral vascular disease, unspecified; R60.0 Localized edema; L53.9 Erythematous condition, unspecified; F17.210 Nicotine dependence, cigarettes, uncomplicated | CPT/HCPCS: 11042; 99213 ==

== ENCOUNTER → 2024-07-12 10:44 | Outpatient (CLI) | payer OTHER, SELFPAY | PROVIDERS: PCP Family Medicine; Referring Provider Family Medicine; Visit Provider Physician Assistant | DX: L97.812 Non-pressure chronic ulcer of other part of right lower leg with fat layer exposed (principal); I87.2 Venous insufficiency (chronic) (peripheral); R60.0 Localized edema; L53.9 Erythematous condition, unspecified | CPT/HCPCS: 29581 ==

== ENCOUNTER → 2024-07-17 09:48 | Outpatient (CLI) | payer OTHER, SELFPAY | PROVIDERS: PCP Family Medicine; Referring Provider Family Medicine; Visit Provider Surgery | DX: L97.812 Non-pressure chronic ulcer of other part of right lower leg with fat layer exposed (principal); I87.2 Venous insufficiency (chronic) (peripheral); R60.0 Localized edema; L53.9 Erythematous condition, unspecified; M79.661 Pain in right lower leg; F17.210 Nicotine dependence, cigarettes, uncomplicated; I73.9 Peripheral vascular disease, unspecified; I80.9 Phlebitis and thrombophlebitis of unspecified site | CPT/HCPCS: 11042 ==

== ENCOUNTER → 2024-07-20 09:54 | Outpatient (CLI) | payer OTHER, SELFPAY | PROVIDERS: PCP Family Medicine; Referring Provider Family Medicine; Visit Provider Surgery | DX: L97.812 Non-pressure chronic ulcer of other part of right lower leg with fat layer exposed (principal); I87.2 Venous insufficiency (chronic) (peripheral); R60.0 Localized edema; L53.9 Erythematous condition, unspecified; R21 Rash and other nonspecific skin eruption; M79.661 Pain in right lower leg | CPT/HCPCS: 99213 ==

== ENCOUNTER → 2024-07-24 11:18 | Outpatient (CLI) | payer OTHER, SELFPAY | PROVIDERS: PCP Family Medicine; Referring Provider Family Medicine; Visit Provider Surgery | DX: L97.812 Non-pressure chronic ulcer of other part of right lower leg with fat layer exposed (principal); I87.2 Venous insufficiency (chronic) (peripheral); I80.01 Phlebitis and thrombophlebitis of superficial vessels of right lower extremity; L53.9 Erythematous condition, unspecified; R60.0 Localized edema; R21 Rash and other nonspecific skin eruption; F17.210 Nicotine dependence, cigarettes, uncomplicated; M79.661 Pain in right lower leg | CPT/HCPCS: 11042; 99213 ==

== ENCOUNTER → 2024-07-31 10:28 | Outpatient (CLI) | payer OTHER, SELFPAY | LOC: WC 10:29 | PROVIDERS: PCP Family Medicine; Referring Provider Family Medicine; Visit Provider Surgery | DX: L97.812 Non-pressure chronic ulcer of other part of right lower leg with fat layer exposed (principal); I87.2 Venous insufficiency (chronic) (peripheral); I73.9 Peripheral vascular disease, unspecified; R60.0 Localized edema; L53.9 Erythematous condition, unspecified; R21 Rash and other nonspecific skin eruption; L98.8 Other specified disorders of the skin and subcutaneous tissue; F17.210 Nicotine dependence, cigarettes, uncomplicated | CPT/HCPCS: 11042 ==

== ENCOUNTER → 2024-08-07 10:23 | Outpatient (CLI) | payer OTHER, SELFPAY | PROVIDERS: PCP Family Medicine; Referring Provider Family Medicine; Visit Provider Surgery | DX: I87.2 Venous insufficiency (chronic) (peripheral) (principal); L97.812 Non-pressure chronic ulcer of other part of right lower leg with fat layer exposed; L53.8 Other specified erythematous conditions; L98.8 Other specified disorders of the skin and subcutaneous tissue; R21 Rash and other nonspecific skin eruption; F17.210 Nicotine dependence, cigarettes, uncomplicated | CPT/HCPCS: 11042 ==

== ENCOUNTER → 2024-08-10 10:43 | Outpatient (CLI) | payer OTHER, SELFPAY | LOC: WC 10:44 | PROVIDERS: PCP Family Medicine; Referring Provider Family Medicine; Visit Provider Physician Assistant | DX: I87.2 Venous insufficiency (chronic) (peripheral) (principal); L97.812 Non-pressure chronic ulcer of other part of right lower leg with fat layer exposed; L98.8 Other specified disorders of the skin and subcutaneous tissue; R60.0 Localized edema; R21 Rash and other nonspecific skin eruption | CPT/HCPCS: 29581 ==

== ENCOUNTER → 2024-08-13 14:06 | Outpatient (CLI) | payer OTHER, SELFPAY ==
--- NOTE | 2024-08-13 14:09 | DI.US.S_ITS ---
PROCEDURE: US VENOUS INSUFFICIENCY LTD INDICATIONS: Non-healing venous ulcer of RLE TECHNIQUE: Real time scanning was performed of the right lower extremity venous system, with imaging documentation, as well as Color and pulse Doppler interrogation. COMPARISON: [facility], , US VENOUS REFLUX DOPPLER RIGHT, 12/04/2021, 14:42. FINDINGS: RIGHT LOWER EXTREMITY: The deep veins are normally compressible, and free of intraluminal thrombus. Color and pulse Doppler demonstrate normal intravascular flow. There is normal augmentation with distal compression maneuver. Deep venous reflux involving the popliteal vein and mid femoral vein. Incidental note is made of prominent, nonenlarged right inguinal lymph nodes Greater saphenous vein (GSV): Normally 4 mm or less in diameter, with any reflux less than 0.5 seconds. Saphenofemoral junction (SFJ): 5 mm. Reflux time 2.2 seconds Proximal GSV: Closed Mid GSV: Closed Distal GSV: 1 mm. Reflux time 0.9 seconds Calf GSV: 3 mm, and thrombosed. Anterior accessory GSV (AAGSV): Anatomic variant not present across anterior thigh. Thrombosed varices within the upper calf. Small saphenous vein (SSV): Posterior calf, draining into popliteal vein. Posterior calf: 4 mm. Reflux time 0.8 seconds. Vein of Giacomini (posterior thigh connection between GSV and SSV): Anatomic variant not seen. Health Professional veins: Thigh: Location lower thigh, diameter 2 mm with reflux time 1.1 seconds. Calf: Location mid calf, diameter 2 mm with reflux time of 5 seconds. IMPRESSION: 1. Right GSV is ablated from the mid to upper thigh. 2. Deep venous insufficiency involving the right popliteal vein and mid femoral vein. 3. Superficial venous insufficiency involving the right short saphenous vein. 4. Couple of incompetent perforators within the lower thigh and mid calf. Dictated by: Terry Back M.D. on 08/13/2024 at 16:11 Approved by: Terry Back M.D. on 08/13/2024 at 16:20
== END ==
PROVIDERS: PCP Family Medicine; Referring Provider Surgery; Visit Provider Surgery
DX: I87.331 Chronic venous hypertension (idiopathic) with ulcer and inflammation of right lower extremity (principal); L97.812 Non-pressure chronic ulcer of other part of right lower leg with fat layer exposed; I87.2 Venous insufficiency (chronic) (peripheral)
CPT/HCPCS: 93971

== ENCOUNTER → 2024-08-14 10:52 | Outpatient (CLI) | payer OTHER, SELFPAY | LOC: WC 10:53 | PROVIDERS: Family Provider Family Medicine; PCP Family Medicine; Referring Provider Family Medicine; Visit Provider Surgery | DX: I87.2 Venous insufficiency (chronic) (peripheral) (principal); I73.9 Peripheral vascular disease, unspecified; L97.812 Non-pressure chronic ulcer of other part of right lower leg with fat layer exposed; I80.01 Phlebitis and thrombophlebitis of superficial vessels of right lower extremity; R60.0 Localized edema; L98.8 Other specified disorders of the skin and subcutaneous tissue | CPT/HCPCS: 11042; 99213 ==

== ENCOUNTER → 2024-08-17 11:46 | Outpatient (CLI) | payer OTHER, SELFPAY | LOC: WC 11:47 | PROVIDERS: Family Provider Family Medicine; PCP Family Medicine; Referring Provider Family Medicine; Visit Provider Physician Assistant | DX: I87.2 Venous insufficiency (chronic) (peripheral) (principal); L97.812 Non-pressure chronic ulcer of other part of right lower leg with fat layer exposed; L98.8 Other specified disorders of the skin and subcutaneous tissue; R60.0 Localized edema; R21 Rash and other nonspecific skin eruption | CPT/HCPCS: 29581 ==

== ENCOUNTER → 2024-08-21 15:14 | Outpatient (CLI) | payer OTHER, SELFPAY ==
--- NOTE | 2024-08-21 | OV.WND_ITS ---
PROGRESS NOTE DETAILS PATIENT NAME: ADRIANA CHAVEZ PATIENT NUMBER: [id number] CLINICIAN: KITA HICKEY RN PATIENT DATE OF : 1950 PHYSICIAN / EXTRUSION ENGINEER: MAGALIS HERNANDEZ PATIENT SUBJECTIVE CHIEF COMPLAINT THIS INFORMATION WAS OBTAINED FROM THE PATIENT. RIGHT LEG GENERAL NOTES VENOUS ULCER ON RIGHT LEG. ALLERGIES BACTRIM (SEVERITY: MODERATE, REACTION: ITCHY RASH), DOXYCYCLINE (REACTION: RASH ON HAND), LEVAQUIN (REACTION: TENDONITIS ) HPI THIS INFORMATION WAS OBTAINED FROM THE PATIENT. THE FOLLOWING HPI ELEMENTS WERE DOCUMENTED FOR THE PATIENT'S WOUND: LOCATION: RLE DURATION: 02/01/24 CONTEXT: VENOUS ASSOCIATED SIGNS AND SYMPTOMS: NONE THE PATIENT IS A 74-YEAR-OLD MALE WITH CHRONIC VENOUS INSUFFICIENCY AND PAD WHO RETURNS TODAY FOR FOLLOW UP OF A VENOUS ULCER ON THE RIGHT LOWER EXTREMITY. THE PATIENT IS RECEIVING DRESSING CHANGES WITH HYDROFERA BLUE WITH MULTILAYER REGULAR COMPRESSION. HE IS RECEIVING LOTRISONE TO THE PERIWOUND SKIN WITH EACH DRESSING CHANGE. HE HAS NOT HAD ANY FEVER OR CHILLS. THE PATIENT REPORTS A GOOD APPETITE AND DENIES HAVING ANY OTHER RECENT CHANGES IN HIS OVERALL HEALTH. THE PATIENT HAS A PAST HISTORY OF VENOUS ULCER OF THE RIGHT LOWER EXTREMITY THAT WAS NOTED TO BE HEALED AT HIS LAST VISIT IN JUNE 06, 2022. HE DID UNDERGO A VEIN ABLATION OF THE RIGHT LOWER EXTREMITY 2 YEARS AGO IN [place]. ABIS WERE 1.16 ON THE LEFT AND 1.21 ON THE RIGHT. THE PATIENT IS A CURRENT CIGARETTE SMOKER. ON EXAM TODAY THE ULCER MEASUREMENTS ARE IMPROVED AND PERIWOUND SKIN HAS LESS INFLAMMATION. THERE IS AN AREA OF SUPERFICIAL THROMBOPHLEBITIS IN THE PROXIMAL CALF THAT IS IMPROVING. THE PATIENT HAS PREVIOUSLY COMPLETED A 1 WEEK COURSE OF CLINDAMYCIN. LABS: 08/13/24: VEIN ULTRASOUND: RIGHT GSV IS ABLATED FROM THE MID TO UPPER THIGH. DEEP VENOUS INSUFFICIENCY INVOLVING THE RIGHT POPLITEAL VEIN AND MID FEMORAL VEIN. SUPERFICIAL VENOUS INSUFFICIENCY INVOLVING THE RIGHT SHORT SAPHENOUS VEIN. COUPLE OF INCOMPETENT PERFORATORS WITHIN THE LOWER THIGH AND MID CALF. 06/28/24: CULTURE GREW STAPHYLOCOCCUS AUREUS AND STREP AGALACTIAE 02/03/24: WBC 10.6, HEMOGLOBIN 13.9, HCT 40.5, ELECTROLYTES UNREMARKABLE, GFR GREATER THAN 60, LFTS NORMAL FAMILY HISTORY THIS INFORMATION WAS OBTAINED FROM THE PATIENT. ADRIANA CHAVEZ [id number] 1950 HEART DISEASE- FATHER SOCIAL HISTORY THIS INFORMATION WAS OBTAINED FROM THE PATIENT. CURRENT EVERY DAY SMOKER: QUIT 2022, NOW LIGHTLY SMOKES CIGARS ALCOHOL USE: 3 PER DAY CAFFEINE USE: 3 PER DAY LIVES IN: PRIVATE HOME MARITAL STATUS: RETIRED TOBACCO USE (DEPRECATED): LIGHT CIGAR USE, DAILY MEDICAL HISTORY THIS INFORMATION WAS OBTAINED FROM THE PATIENT. PATIENT HAS A MEDICAL HISTORY OF: CHRONIC VENOUS HYPERTENSION (RIGHT LOWER LEG; COMPLICATED BY INFLAMMATION AND ULCER) PERIPHERAL VASCULAR DISEASE HYPERLIPIDEMIA NICOTINE DEPENDENCE VENOUS STASIS ADDITIONAL INFORMATION DOES PATIENT HAVE A HISTORY OF CANCER? YES? COMPLETE ALL QUESTIONS.: NO SURGICAL HISTORY THIS INFORMATION WAS OBTAINED FROM THE PATIENT. PATIENT HAS A SURGICAL HISTORY OF: ESOPHAGEAL OBSTRUCTION- REMOVAL OF A TOOTHPICK- (2002) ESOPHAGEAL OBSTRUCTION- SCAR TISSUE/STRICTURE REMOVAL- RIGHT KNEE SURGERY- VASCULAR SX- 05/07/2022 (DR. YINKA NEVAREZ) BROKEN NECK- 02/11/2024 REVIEW OF SYSTEMS (ROS) THIS INFORMATION WAS OBTAINED FROM THE PATIENT. COMPLAINTS AND SYMPTOMS PATIENT COM PLAINS OF: GENERAL NOTES: I HAVE REVIEWED AND CONCUR WITH THE REVIEW OF SYSTEMS AND PAST FAMILY SOCIAL HISTORY DOCUMENTS COMPLETED BY THE CLINICIAN, I HAVE REVIEWED AND CONCUR WITH THE WOUND ASSESSMENT DOCUMENT COMPLETED BY THE CLINICIAN CO-MORBID CONDITIONS: PERIPHERAL ARTERIAL DISEASE, SMOKING, VENOUS INSUFFIENCY INTEGUMENTARY (HAIR/SKIN/NAILS): OPEN SORE PRIOR WOUND HISTORY: DRAINAGE, PAIN PATIENT DENIES COM PLAINTS OR SY M PTOM S RELATED TO: CARDIOVASCULAR (CENTRAL): CHEST PAIN, DYSPNEA ON EXERTION, IRREGULAR HEART BEAT CARDIOVASCULAR (CENTRAL/PERIPHERAL): INTERMITTENT CLAUDICATION, LOWER EXTREMITY (LEG) RESTING PAIN, LOWER EXTREMITY (LEG) SWELLING ADRIANA CHAVEZ [id number] 1950 CONSTITUTIONAL SYMPTOMS (GENERAL HEALTH): CHILLS, FEVER EAR/NOSE/MOUTH/THROAT: HEARING LOSS / AID GASTROINTESTINAL (GI): NAUSEA / VOMITING HEMATOLOGIC/LYMPHATIC: BLEEDING / CLOTTING DISORDERS, BLEEDING TENDENCY MUSCULOSKELETAL: DEFORMITIES, MUSCLE WASTING, MUSCLE WEAKNESS NEUROLOGICAL: LOSS OF PROTECTIVE SENSATION PRIOR WOUND HISTORY: BLEEDING PSYCHIATRIC: MEMORY LOSS RESPIRATORY: COUGH, OXYGEN USE, SHORTNESS OF BREATH OBJECTIVE VITALS HEIGHT/LENGTH: 72 IN (182.88 CM), WEIGHT: 200 LBS (90.91 KGS), BMI: 27.1, TEMPERATURE: 99 ?F (37.22 ?C), PULSE: 85 BPM, RESPIRATORY RATE: 16 BREATHS/MIN, BLOOD PRESSURE: 121/72 MMHG, PULSE OXIMETRY: 95 %. PHYSICAL EXAM CONSTITUTIONAL: VITAL SIGNS REVIEWED AND NOTED. WELL DEVELOPED, WELL NOURISHED, AND IN NO ACUTE DISTRESS. ALERT AND ORIENTED X3. RESPIRATORY: EVEN RESPIRATIONS WITHOUT USE OF ACCESSORY MUSCLES. NO INTERCOASTAL RETRACTIONS NOTED. EVEN AND NON LABORED RESPIRATION. INTEGUMENTARY (HAIR, SKIN): STASIS DERMATITIS. SEE WOUND ASSESSMENT. NEUROLOGICAL: SENSATION: SYMMETRIC FUNCTION BY INFORMAL OBSERVATION. PSYCHIATRIC: ORIENTATION TO TIME, PLACE AND PERSON: NORMAL AFFECT WITH NORMAL THOUGHT PATTERN. ADDITIONAL INFORMATION THE PATIENT'S POTENTIAL TO HEAL IS: FAIR. LOWER EXTREMITY ASSESSMENT EDEMA ASSESSMENT: LEFT EXTREMITY: EDEMA IS PRESENT COMPRESSION DEVICE IN USE: YES DEVICE USED CORRECTLY: YES DEVICE IN USE: COMPRESSION STOCKINGS RIGHT EXTREMITY: EDEMA IS PRESENT COMPRESSION DEVICE IN USE: YES DEVICE USED CORRECTLY: YES DEVICE IN USE: COMPRESSION STOCKINGS CALF MEASUREMENT 36 CM FROM HEEL WITH RIGHT MEASUREMENT OF 33 CM ANKLE MEASUREMENT 5 CM FROM MALLEOLUS WITH RIGHT MEASUREMENT OF 24 CM FOOT MEASUREMENT 17 CM FROM HEEL WITH RIGHT MEASUREMENT OF 24 CM VASCULAR ASSESSMENT LEFT EXTREMITY COLORS, HAIR GROWTH, AND CONDITIONS: EXTREMITY COLOR: PIGMENTED HAIR GROWTH ON EXTREMITY: YES TEMPERATURE OF EXTREMITY: WARM CAPILARY REFILL: < 3 SECONDS ERYTHEMA: YES DEPENDENT RUBOR: NO ADRIANA CHAVEZ [id number] 1950 HYPERPIGMENTATION: YES LIPODERMATOSCLEROSIS: NO RIGHT EXTREMITY COLORS, HAIR GROWTH, AND CONDITIONS: EXTREMITY COLOR: PIGMENTED HAIR GROWTH ON EXTREMITY: YES TEMPERATURE OF EXTREMITY: WARM CAPILARY REFILL: < 3 SECONDS ERYTHEMA: NO DEPENDENT RUBOR: NO HYPERPIGMENTATION: YES LIPODERMATOSCLEROSIS: NO WOUND ASSESSMENT(S) WOUND #3 RIGHT LEG - LOWER IS A CHRONIC FULL THICKNESS VENOUS ULCER ACQUIRED ON 02/01/2024 AND HAS RECEIVED A STATUS OF NOT HEALED. INITIAL WOUND ENCOUNTER MEASUREMENTS ARE 1.8CM LENGTH X 1.2CM WIDTH X 0.2 CM DEPTH, WITH AN AREA OF 2.16 SQ CM AND A VOLUME OF 0.432 CUBIC CM.INITIAL WOUND ENCOUNTER PREVIOUS MEASUREMENTS FROM 08/17/2024 ARE 2CM LENGTH X 1.4CM WIDTH X 0.2CM DEPTH, WITH AN AREA OF 2.8 SQ CM AND A VOLUME OF 0.56 CUBIC CM. ADIPOSE IS EXPOSED. NO TUNNELING HAS BEEN NOTED. NO SINUS TRACT HAS BEEN NOTED. NO UNDERMINING HAS BEEN NOTED. THERE IS A MODERATE AMOUNT OF SEROSANGUINEOUS DRAINAGE NOTED WHICH HAS NO ODOR. THE PATIENT REPORTS A WOUND PAIN OF LEVEL 0/10. THE WOUND MARGIN IS ATTACHED WOUND BED HAS YES, BRIGHT RED, PINK, FIRM, GRANULATION, YES SLOUGH, NO ESCHAR, YES EPITHELIALIZATION. THE PERIWOUND SKIN EXHIBITED EDEMA, RASH AND HEMOSIDEROSIS. THE PERIWOUND SKIN DID NOT EXHIBIT EXCORIATION, MACERATION AND ERYTHEMA. THE PERIWOUND SKIN WAS DRY/SCALY AND MOIST. THE TEMPERATURE OF THE PERIWOUND SKIN IS WNL. PERIWOUND SKIN DOES NOT EXHIBIT SIGNS OR SYMPTOMS OF INFECTION. LOCAL PULSE IS NORMAL. ADDITIONAL INFORMATION OTHER DEVITALIZED TISSUE PRESENT: BIOFILM KAYLENE/VASCULAR COMPLETED?: KAYLENE = 06/28/24 RESULTS?: L=1.16, R=1.21 ASSESSMENT ACTIVE PROBLEMS ICD-10 (ENCOUNTER DIAGNOSIS) L97.812 - NON-PRESSURE CHRONIC ULCER OF OTHER PART OF RIGHT LOWER LEG WITH FAT LAYER EXPOSED (ENCOUNTER DIAGNOSIS) I87.331 - CHRONIC VENOUS HYPERTENSION (IDIOPATHIC) WITH ULCER AND INFLAMMATION OF RIGHT LOWER EXTREMITY (ENCOUNTER DIAGNOSIS) I80.01 - PHLEBITIS AND THROMBOPHLEBITIS OF SUPERFICIAL VESSELS OF RIGHT LOWER EXTREMITY (ENCOUNTER DIAGNOSIS) B35.9 - DERMATOPHYTOSIS, UNSPECIFIED GENERAL NOTES VENOUS ULCER WITH PERIWOUND INFLAMMATION RIGHT LOWER EXTREMITY WITH IMPROVED MEASUREMENTS, SUPERFICIAL THROMBOPHLEBITIS IMPROVED THE FOLLOWING FACTORS HAVE BEEN IDENTIFIED THAT MAY AFFECT WOUND HEALING: DEVITALIZED TISSUE BIOFILM VENOUS INSUFFICIENCY SWELLING INFLAMMATION CIGARETTE USE ADRIANA CHAVEZ [id number] 1950 GOALS: REMOVE DEVITALIZED TISSUE REMOVE AND PREVENT BIOFILM REDUCE SWELLING REDUCE INFLAMMATION WOUND CLOSURE PREVENT RECURRENCE PLAN: DEBRIDEMENT, CONTINUE DRESSING CHANGES WITH HYDROFERA BLUE WITH REGULAR MULTILAYER COMPRESSION TWICE A WEEK. APPLY LOTRISONE TO PERIWOUND SKIN WITH EACH DRESSING CHANGE. CONTINUE PROTEIN SUPPLEMENTATION. AWAIT VASCULAR SURGERY CONSULT. FOLLOW UP IN 1 WEEK FOR A RECHECK. PROCEDURES WOUND #3 WOUND #3 (VENOUS ULCER) IS LOCATED ON THE RIGHT LEG - LOWER. A SKIN/SUBCUTANEOUS TISSUE LEVEL SURGICAL DEBRIDEMENT WITH A TOTAL AREA DEBRIDED OF 2.16 SQ CM. WAS PERFORMED BY MAGALIS HERNANDEZ MD. SUBCUTANEOUS WAS REMOVED ALONG WITH DEVITALIZED TISSUE: BIOFILM, EXUDATE AND SLOUGH. THE FOLLOWING INSTRUMENT(S) WERE USED: CURETTE. PAIN CONTROL WAS ACHIEVED USING EMLA LIDOCAINE/PRILOCAINE 2.5%/2.5%. A TIME OUT WAS CONDUCTED PRIOR TO THE START OF THE PROCEDURE. A MODERATE AMOUNT OF BLEEDING WAS CONTROLLED WITH PRESSURE. THE PROCEDURE WAS TOLERATED WELL WITH A PAIN LEVEL OF 0 THROUGHOUT AND A PAIN LEVEL OF 0 FOLLOWING THE PROCEDURE. POST DEBRIDEMENT MEASUREMENTS: 1.8CM LENGTH X 1.2CM WIDTH X 0.3CM DEPTH; WITH AN AREA OF 2.16 SQ CM AND A VOLUME OF 0.648 CUBIC CM. ADDITIONAL INFORMATION MUSCLE FASCIA OR BONE REMOVED AND SENT TO PATHOLOGY?: NO WOUND #3 (VENOUS ULCER) IS LOCATED ON THE RIGHT LEG - LOWER. A MULTILAYER COMPRESSION PROCEDURE WAS PERFORMED FOR THE LOWER RIGHT EXTREMITY BY KITA HICKEY RN. A 2 LAYER COBAN WRAP WAS APPLIED WITH HIGH (30-40 MMHG) COMPRESSION. THE PROCEDURE WAS TOLERATED WELL WITH A PAIN LEVEL OF 0 THROUGHOUT AND A PAIN LEVEL OF 0 FOLLOWING THE PROCEDURE. GENERAL NOTES COBAN 2 LAYER COMPRESSION WRAP SYSTEM. PLAN WOUND ORDERS: WOUND #3 RIGHT LEG - LOWER CLEANSER CLEANSE WOUND WITH NORMAL SALINE APPLY HYPOCHLOROUS ACID (VASHE OR SIMILAR) SOAKED 4X4 GAUZE TO WOUND BED POST DEBRIDEMENT FOR 5-10 MINUTES. REMOVE GAUZE AND DRESS WOUND ACCORDING TO DRESSING ORDERS. TOPICAL TREATMENTS OTHER ORDER: - LOTRISONE TO PERIWOUND. DRESSING ORDERS APPLY DRESSING(S) AND SECURE WITH: - HYDROFERA BLUE CLASSIC FOAM, MOISTENED WITH SALINE THEN WRUNG OUT. COVERED WITH OPTIFOAM. DRESSING CHANGE FREQUENCY LEAVE DRESSING INTACT UNTIL YOUR NEXT WOUND CENTER APPOINTMENT. KEEP DRY. COMPRESSION/EDEMA CONTROL ELEVATE LEG(S) ABOVE THE LEVEL OF THE HEART MUCH POSSIBLE. AVOID STANDING IN ONE POSITION FOR MORE THAN 10 MINUTES. AVOID SITTING WITH LEGS DOWN. DO NOT CROSS LEGS WHEN SITTING. APPLY MULTI LAYER WRAP TO AFFECTED LEG(S) AT 30-40MMHG. ADRIANA CHAVEZ [id number] 1950 ADDITIONAL ORDERS: DIETARY TAKE VITAMIN C 1000MG BY MOUTH DAILY. TAKE ZINC 25MG BY MOUTH DAILY. INCREASE THE PROTEIN IN YOUR DIET. FOLLOW-UP APPOINTMENTS RETURN APPOINTMENT 1 WEEK - TUESDAYS. RETURN FOR NURSE VISIT ON DATE NOTED BELOW FOR WOUND ASSESSMENT, MECHANICAL DEBRIDEMENT NECESSARY, AND COMPRESSION DRESSING CHANGE ORDERED DURING TODAY'S VISIT: COMPLETE FOR DIAGNOSIS OF: - VLU. FRIDAYS. SCRIBING ATTESTATION I ATTEST, THE NURSE, THAT I SCRIBED THESE ORDERS FOR THE WOUND CARE PROVIDER. PROVIDER REVIEW AND ATTESTATION: REVIEWED AND EVALUATED LABS. REVIEWED HOSPITAL RECORDS. DISCUSSED THE PLAN OF CARE @ BEDSIDE WITH - THE PATIENT AND I AGREE AND ATTEST TO THE ABOVE INFORMATION PROVIDED FROM OTHER LICENSED PROFESSIONALS. PLAN OF CARE: 01. ENSURE/ESTABLISH OPTIMAL BLOOD FLOW : - COMPLETE LOWER EXTREMITY ASSESSMENT STATUS: CONTINUED DATE: 08/21/2024 02. ASSESS FOR/TREAT INFECTION : - EVALUATE FOR SIGNS AND SYMPTOMS OF INFECTION AND DOCUMENT FINDINGS. STATUS: CONTINUED DATE: 08/21/2024 - OBTAIN CULTURE AND SENSITIVITY (CANDS) OR TISSUE CULTURE WHEN INFECTION IS SUSPECTED. (NOTE:) CONSIDER REPEATING WHEN WOUND HEALING <40% AFTER 30 DAYS OF WOUND CARE. STATUS: COMPLETED DATE: 06/28/2024 03. DEBRIDE WEEKLY OR MORE OFTEN PRN : - EVALUATE PATIENT IN CENTER WEEKLY TO ASSESS WOUND BED AND MARGINS FOR NEED FOR DEBRIDEMENT. STATUS: CONTINUED DATE: 08/21/2024 - DEBRIDEMENT BY ANY METHOD TO REMOVE DEVITALIZED/NECROTIC TISSUE TO PROMOTE HEALING AND PREVENT FURTHER COMPLICATIONS. GOAL IS TO STIMULATE AND/OR MAINTAIN ACUTE PHASE OF WOUND HEALING BY REDUCING BACTERIAL BURDEN AND DEVITALIZED/NON-VIABLE TISSUE. STATUS: CONTINUED DATE: 08/21/2024 04. OPTIMIZE GLUCOSE CONTROL AND NUTRITION : - ORDER/REVIEW PERTINENT LABS TO EVALUATE RENAL FUNCTION, GLUCOSE CONTROL, AND NUTRITIONAL STATUS. STATUS: CONTINUED DATE: 08/21/2024 05. OFFLOADING PLAN : - REVIEWED, NOT APPLICABLE 06. OPTIMIZE HOST FACTORS: - ASSESS AND REVIEW PATIENT HISTORY FOR WOUND ETIOLOGY, CO-MORBID CONDITIONS, MEDICATION REGIME, AND SMOKING HISTORY. STATUS: CONTINUED DATE: 08/21/2024 07. DRESSING SELECTION : - EVALUATE FOR DRESSING-RELATED FACTORS, SUCH AVAILABILITY, WEAR TIME, ADAPTABILITY AND USE TO BETTER OPTIMIZE WOUND HEALING AND PATIENT COMPLIANCE. STATUS: CONTINUED DATE: 08/21/2024 - CHOOSE TOPICAL TREATMENTS AND/OR DRESSING BASED ON WOUND TYPE AND APPEARANCE, PERIWOUND SKIN CONDITION, WOUND SIZE AND DEPTH, ANATOMIC LOCATION, VOLUME OF EXUDATE, EDEMA IN THE LOWER EXTREMITIES, AND RISK OR PRESENCE OF INFECTION. STATUS: CONTINUED DATE: 08/21/2024 08. ADVANCED MODALITIES : - REVIEWED, NOT APPLICABLE ADRIANA CHAVEZ [id number] 1950 09. FALL PREVENTION : - COMPLETE FALL ASSESSMENT. STATUS: COMPLETED DATE: 06/28/2024 10. PAIN MANAGEMENT : - COMPLETE PAIN ASSESSMENT STATUS: COMPLETED DATE: 06/28/2024 11. MEASURABLE GOALS FOR WOUND HEALING AND/OR HYPERBARIC OXYGEN THERAPY : - DECREASE WOUND DIMENSIONS STATUS: CONTINUED DATE: 08/21/2024 12. DURATION/FREQUENCY OF WOUND CARE VISITS : - 2X WEEKLY FOR 30 DAYS STATUS: CONTINUED DATE: 08/21/2024 ELECTRONIC SIGNATURE(S) SIGNED BY: DATE: MAGALIS HERNANDEZ MD 08/23/2024 15:26:58 (PT) ENTERED BY: KITA HICKEY RN ON 08/23/2024 10:01:39 (PT) ADRIANA CHAVEZ [id number] 1950
== END ==
PROVIDERS: Family Provider Family Medicine; PCP Family Medicine; Referring Provider Family Medicine; Visit Provider Surgery
DX: I87.2 Venous insufficiency (chronic) (peripheral) (principal); L97.812 Non-pressure chronic ulcer of other part of right lower leg with fat layer exposed; R60.0 Localized edema; L98.8 Other specified disorders of the skin and subcutaneous tissue; R23.4 Changes in skin texture
CPT/HCPCS: 11042; 29581; 99213

== ENCOUNTER → 2024-08-24 11:32 | Outpatient (CLI) | payer OTHER, SELFPAY | LOC: WC 11:34 | PROVIDERS: Family Provider Family Medicine; PCP Family Medicine; Referring Provider Family Medicine; Visit Provider Physician Assistant | DX: I87.2 Venous insufficiency (chronic) (peripheral) (principal); L97.812 Non-pressure chronic ulcer of other part of right lower leg with fat layer exposed; L98.8 Other specified disorders of the skin and subcutaneous tissue; R23.4 Changes in skin texture | CPT/HCPCS: 29581 ==

== ENCOUNTER → 2024-08-28 10:41 | Outpatient (CLI) | payer OTHER, SELFPAY | LOC: WC 10:41 | PROVIDERS: Family Provider Family Medicine; PCP Family Medicine; Referring Provider Family Medicine; Visit Provider Surgery | DX: I87.2 Venous insufficiency (chronic) (peripheral) (principal); L97.812 Non-pressure chronic ulcer of other part of right lower leg with fat layer exposed; I73.9 Peripheral vascular disease, unspecified; R60.0 Localized edema; L98.8 Other specified disorders of the skin and subcutaneous tissue; R23.4 Changes in skin texture; R21 Rash and other nonspecific skin eruption; F17.200 Nicotine dependence, unspecified, uncomplicated | CPT/HCPCS: 11042 ==

== ENCOUNTER → 2024-08-31 09:59 | Outpatient (CLI) | payer OTHER, SELFPAY | LOC: WC 10:14 | PROVIDERS: Family Provider Family Medicine; PCP Family Medicine; Referring Provider Family Medicine; Visit Provider Physician Assistant | DX: L97.812 Non-pressure chronic ulcer of other part of right lower leg with fat layer exposed (principal); I87.2 Venous insufficiency (chronic) (peripheral); R60.0 Localized edema | CPT/HCPCS: 29581 ==

== ENCOUNTER → 2024-09-04 10:16 | Outpatient (CLI) | payer OTHER, SELFPAY | LOC: WC 10:17 | PROVIDERS: Family Provider Family Medicine; PCP Family Medicine; Referring Provider Family Medicine; Visit Provider Surgery | DX: L97.812 Non-pressure chronic ulcer of other part of right lower leg with fat layer exposed (principal); I87.2 Venous insufficiency (chronic) (peripheral); I80.01 Phlebitis and thrombophlebitis of superficial vessels of right lower extremity; R60.0 Localized edema; F17.210 Nicotine dependence, cigarettes, uncomplicated | CPT/HCPCS: 11042 ==

== ENCOUNTER → 2024-09-07 13:31 | Outpatient (CLI) | payer OTHER, SELFPAY | PROVIDERS: Family Provider Family Medicine; PCP Family Medicine; Referring Provider Family Medicine; Visit Provider Surgery | DX: I87.2 Venous insufficiency (chronic) (peripheral) (principal); L97.812 Non-pressure chronic ulcer of other part of right lower leg with fat layer exposed; R23.4 Changes in skin texture; R60.0 Localized edema; L98.8 Other specified disorders of the skin and subcutaneous tissue | CPT/HCPCS: 29581 ==

== ENCOUNTER → 2024-09-11 10:56 | Outpatient (CLI) | payer OTHER, SELFPAY | PROVIDERS: Family Provider Family Medicine; PCP Family Medicine; Referring Provider Family Medicine; Visit Provider Surgery | DX: I87.2 Venous insufficiency (chronic) (peripheral) (principal); L97.812 Non-pressure chronic ulcer of other part of right lower leg with fat layer exposed; R60.0 Localized edema; L98.8 Other specified disorders of the skin and subcutaneous tissue; F17.200 Nicotine dependence, unspecified, uncomplicated | CPT/HCPCS: 11042 ==

== ENCOUNTER → 2024-09-14 13:17 | Outpatient (CLI) | payer OTHER, SELFPAY | PROVIDERS: Family Provider Family Medicine; PCP Family Medicine; Referring Provider Family Medicine; Visit Provider Physician Assistant | DX: I87.2 Venous insufficiency (chronic) (peripheral) (principal); L97.812 Non-pressure chronic ulcer of other part of right lower leg with fat layer exposed; L98.8 Other specified disorders of the skin and subcutaneous tissue | CPT/HCPCS: 29581 ==

== ENCOUNTER → 2024-09-18 11:01 | Outpatient (CLI) | payer OTHER, SELFPAY | PROVIDERS: Family Provider Family Medicine; PCP Family Medicine; Referring Provider Family Medicine; Visit Provider Surgery | DX: I87.331 Chronic venous hypertension (idiopathic) with ulcer and inflammation of right lower extremity (principal); L97.812 Non-pressure chronic ulcer of other part of right lower leg with fat layer exposed; I80.01 Phlebitis and thrombophlebitis of superficial vessels of right lower extremity; L98.8 Other specified disorders of the skin and subcutaneous tissue; R60.0 Localized edema; F17.210 Nicotine dependence, cigarettes, uncomplicated | CPT/HCPCS: 11042; 99213 ==

== ENCOUNTER → 2024-09-21 11:27 | Outpatient (CLI) | payer OTHER, SELFPAY | PROVIDERS: Family Provider Family Medicine; PCP Family Medicine; Referring Provider Family Medicine; Visit Provider Physician Assistant | DX: I87.2 Venous insufficiency (chronic) (peripheral) (principal); L97.812 Non-pressure chronic ulcer of other part of right lower leg with fat layer exposed; L98.8 Other specified disorders of the skin and subcutaneous tissue; R60.0 Localized edema | CPT/HCPCS: 29581 ==

== ENCOUNTER → 2024-09-25 10:51 | Outpatient (CLI) | payer OTHER, SELFPAY ==
--- NOTE | 2024-09-25 | OV.WND_ITS ---
PROGRESS NOTE DETAILS PATIENT NAME: ADRIANA CHAVEZ PATIENT NUMBER: [id number] CLINICIAN: GENA LING PATIENT DATE OF : 1950 PHYSICIAN / POULTRY AND FISH BUTCHER: MAGALIS HERNANDEZ PATIENT SUBJECTIVE CHIEF COMPLAINT THIS INFORMATION WAS OBTAINED FROM THE PATIENT. TWINGY AT TIMES WOUND RIGHT LEG ALLERGIES BACTRIM (SEVERITY: MODERATE, REACTION: ITCHY RASH), DOXYCYCLINE (REACTION: RASH ON HAND), LEVAQUIN (REACTION: TENDONITIS ) HPI THIS INFORMATION WAS OBTAINED FROM THE PATIENT. THE FOLLOWING HPI ELEMENTS WERE DOCUMENTED FOR THE PATIENT'S WOUND: LOCATION: [facility] DURATION: 02/01/24 CONTEXT: VENOUS THE PATIENT IS A 74-YEAR-OLD MALE WITH CHRONIC VENOUS INSUFFICIENCY AND PAD WHO RETURNS TODAY FOR FOLLOW UP OF A VENOUS ULCER ON THE RIGHT LOWER EXTREMITY. THE PATIENT IS RECEIVING DRESSING CHANGES WITH URGO CLEAN WITH MULTILAYER REGULAR COMPRESSION. HE IS RECEIVING LOTRISONE TO THE PERIWOUND SKIN WITH EACH DRESSING CHANGE. HE HAS NOT HAD ANY FEVER OR CHILLS. THE PATIENT REPORTS A GOOD APPETITE AND DENIES HAVING ANY OTHER RECENT CHANGES IN HIS OVERALL HEALTH. HE DID UNDERGO A VEIN ABLATION OF THE RIGHT LOWER EXTREMITY 2 YEARS AGO IN [place]. ABIS WERE 1.16 ON THE LEFT AND 1.21 ON THE RIGHT. THE PATIENT IS A CURRENT CIGARETTE SMOKER. ON EXAM TODAY THE ULCER MEASUREMENTS ARE STABLE AND PERIWOUND SKIN LOOKS GOOD. THERE ARE SOME ROLLED EDGES AND THERE IS GOOD GRANULATION TISSUE. OVERALL THERE HAS BEEN A 67% DECREASE IN SIZE SINCE STARTING TREATMENT BUT THE ULCER HAS STALLED OVER THE PAST FEW WEEKS. THERE IS AN AREA OF SUPERFICIAL THROMBOPHLEBITIS IN THE PROXIMAL CALF THAT IS IMPROVING. THE PATIENT HAS PREVIOUSLY COMPLETED A 1 WEEK COURSE OF CLINDAMYCIN. THE PATIENT IS A CURRENT CIGARETTE SMOKER. THE PATIENT DOES HAVE AN APPOINTMENT WITH VASCULAR SURGERY LATER THIS WEEK. LABS: 08/13/24: VEIN ULTRASOUND: RIGHT GSV IS ABLATED FROM THE MID TO UPPER THIGH. DEEP VENOUS INSUFFICIENCY INVOLVING THE RIGHT POPLITEAL VEIN AND MID FEMORAL VEIN. SUPERFICIAL VENOUS INSUFFICIENCY INVOLVING THE RIGHT SHORT SAPHENOUS VEIN. COUPLE OF INCOMPETENT PERFORATORS WITHIN THE LOWER THIGH AND MID CALF. 06/28/24: CULTURE GREW STAPHYLOCOCCUS AUREUS AND STREP AGALACTIAE 02/03/24: WBC 10.6, HEMOGLOBIN 13.9, HCT 40.5, ELECTROLYTES UNREMARKABLE, GFR GREATER THAN 60, LFTS NORMAL MEDICAL HISTORY THIS INFORMATION WAS OBTAINED FROM THE PATIENT. PATIENT HAS A MEDICAL HISTORY OF: CHRONIC VENOUS HYPERTENSION (RIGHT LOWER LEG; COMPLICATED BY INFLAMMATION AND ULCER) ADRIANA CHAVEZ [id number] 1950 PERIPHERAL VASCULAR DISEASE HYPERLIPIDEMIA NICOTINE DEPENDENCE VENOUS STASIS ADDITIONAL INFORMATION DOES PATIENT HAVE A HISTORY OF CANCER? YES? COMPLETE ALL QUESTIONS.: NO SURGICAL HISTORY THIS INFORMATION WAS OBTAINED FROM THE PATIENT. PATIENT HAS A SURGICAL HISTORY OF: ESOPHAGEAL OBSTRUCTION- REMOVAL OF A TOOTHPICK- (2002) ESOPHAGEAL OBSTRUCTION- SCAR TISSUE/STRICTURE REMOVAL- RIGHT KNEE SURGERY- VASCULAR SX- 05/07/2022 (DR. YINKA NEVAREZ) BROKEN NECK- 02/11/2024 OBJECTIVE VITALS HEIGHT/LENGTH: 72 IN (182.88 CM), WEIGHT: 200 LBS (90.91 KGS), BMI: 27.1, TEMPERATURE: 98.2 ?F (36.78 ?C), PULSE: 68 BPM, RESPIRATORY RATE: 16 BREATHS/MIN, BLOOD PRESSURE: 136/77 MMHG, PULSE OXIMETRY: 97 %. PHYSICAL EXAM CONSTITUTIONAL: VITAL SIGNS REVIEWED AND NOTED. WELL DEVELOPED, WELL NOURISHED, AND IN NO ACUTE DISTRESS. ALERT AND ORIENTED X3. RESPIRATORY: EVEN RESPIRATIONS WITHOUT USE OF ACCESSORY MUSCLES. NO INTERCOASTAL RETRACTIONS NOTED. EVEN AND NON LABORED RESPIRATION. INTEGUMENTARY (HAIR, SKIN): MILD STASIS DERMATITIS . NO SWELLING OR TENDERNESS. SEE WOUND ASSESSMENT. SKIN WARM AND DRY . NO RASHES. NEUROLOGICAL: SENSATION: SYMMETRIC FUNCTION BY INFORMAL OBSERVATION. PSYCHIATRIC: ORIENTATION TO TIME, PLACE AND PERSON: NORMAL AFFECT WITH NORMAL THOUGHT PATTERN. ADDITIONAL INFORMATION THE PATIENT'S POTENTIAL TO HEAL IS: FAIR. WOUND ASSESSMENT(S) WOUND #3 RIGHT LEG - LOWER IS A CHRONIC FULL THICKNESS VENOUS ULCER ACQUIRED ON 02/01/2024 AND HAS RECEIVED A STATUS OF NOT HEALED. INITIAL WOUND ENCOUNTER MEASUREMENTS ARE 1.5CM LENGTH X 1.4CM WIDTH X 0.2 CM DEPTH, WITH AN AREA OF 2.1 SQ CM AND A VOLUME OF 0.42 CUBIC CM.INITIAL WOUND ENCOUNTER PREVIOUS MEASUREMENTS FROM 09/21/2024 ARE 1.4CM LENGTH X 1.3CM WIDTH X 0.2CM DEPTH, WITH AN AREA OF 1.82 SQ CM AND A VOLUME OF 0.364 CUBIC CM. ADIPOSE IS EXPOSED. NO TUNNELING HAS BEEN NOTED. NO SINUS TRACT HAS BEEN NOTED. NO UNDERMINING HAS BEEN NOTED. THERE IS A SMALL AMOUNT OF SEROSANGUINEOUS DRAINAGE NOTED WHICH HAS NO ODOR. THE PATIENT REPORTS A WOUND PAIN OF LEVEL 0/10. THE WOUND MARGIN IS ROLLED WOUND BED HAS YES, PINK, FIRM, GRANULATION, YES SLOUGH, NO ESCHAR, YES EPITHELIALIZATION. THE PERIWOUND SKIN EXHIBITED EDEMA AND HEMOSIDEROSIS. THE PERIWOUND SKIN DID NOT EXHIBIT KATHY, GENE F [id number] 1950 EXCORIATION, RASH, MACERATION AND ERYTHEMA. THE PERIWOUND SKIN WAS NOT DRY/SCALY AND MOIST. THE TEMPERATURE OF THE PERIWOUND SKIN IS WNL. PERIWOUND SKIN DOES NOT EXHIBIT SIGNS OR SYMPTOMS OF INFECTION. LOCAL PULSE IS NORMAL. ADDITIONAL INFORMATION OTHER DEVITALIZED TISSUE PRESENT: BIOFILM KAYLENE/VASCULAR COMPLETED?: KAYLENE = 06/28/24 RESULTS?: L=1.16, R=1.21 ASSESSMENT ACTIVE PROBLEMS ICD-10 (ENCOUNTER DIAGNOSIS) L97.812 - NON-PRESSURE CHRONIC ULCER OF OTHER PART OF RIGHT LOWER LEG WITH FAT LAYER EXPOSED (ENCOUNTER DIAGNOSIS) I87.331 - CHRONIC VENOUS HYPERTENSION (IDIOPATHIC) WITH ULCER AND INFLAMMATION OF RIGHT LOWER EXTREMITY (ENCOUNTER DIAGNOSIS) I80.01 - PHLEBITIS AND THROMBOPHLEBITIS OF SUPERFICIAL VESSELS OF RIGHT LOWER EXTREMITY (ENCOUNTER DIAGNOSIS) B35.9 - DERMATOPHYTOSIS, UNSPECIFIED GENERAL NOTES VENOUS ULCER RIGHT LOWER EXTREMITY WITH STABLE MEASUREMENTS, ROLLED EDGES SUPERFICIAL THROMBOPHLEBITIS IMPROVED THE FOLLOWING FACTORS HAVE BEEN IDENTIFIED THAT MAY AFFECT WOUND HEALING: DEVITALIZED TISSUE BIOFILM VENOUS INSUFFICIENCY SWELLING INFLAMMATION CIGARETTE USE GOALS: REMOVE DEVITALIZED TISSUE REMOVE AND PREVENT BIOFILM REDUCE SWELLING REDUCE INFLAMMATION WOUND CLOSURE PREVENT RECURRENCE PLAN: DEBRIDEMENT, CONTINUE DRESSING CHANGES WITH URGO CLEAN WITH REGULAR MULTILAYER COMPRESSION TWICE A WEEK. APPLY LOTRISONE TO PERIWOUND SKIN WITH EACH DRESSING CHANGE. CONTINUE PROTEIN SUPPLEMENTATION. AWAIT VASCULAR SURGERY CONSULT. FOLLOW UP IN 1 WEEK FOR A RECHECK. PROCEDURES WOUND #3 WOUND #3 (VENOUS ULCER) IS LOCATED ON THE RIGHT LEG - LOWER. A SKIN/SUBCUTANEOUS TISSUE LEVEL SURGICAL DEBRIDEMENT WITH A TOTAL AREA DEBRIDED OF 2.1 SQ CM. WAS PERFORMED BY MAGALIS HERNANDEZ MD. DERMIS, EPIDERMIS AND SUBCUTANEOUS WERE REMOVED ALONG WITH DEVITALIZED TISSUE: BIOFILM, EXUDATE AND SLOUGH. THE FOLLOWING INSTRUMENT(S) WERE USED: CURETTE. PAIN CONTROL WAS ACHIEVED USING EMLA LIDOCAINE/PRILOCAINE 2.5%/2.5%. A TIME OUT WAS CONDUCTED PRIOR TO THE START OF THE PROCEDURE. ADRIANA BENNETT [id number] 1950 MINIMAL AMOUNT OF BLEEDING WAS CONTROLLED WITH SILVER NITRATE. THE PROCEDURE WAS TOLERATED WELL WITH A PAIN LEVEL OF 0 THROUGHOUT AND A PAIN LEVEL OF 0 FOLLOWING THE PROCEDURE. POST DEBRIDEMENT MEASUREMENTS: 1.5CM LENGTH X 1.4CM WIDTH X 0.3CM DEPTH; WITH AN AREA OF 2.1 SQ CM AND A VOLUME OF 0.63 CUBIC CM. ADDITIONAL INFORMATION MUSCLE FASCIA OR BONE REMOVED AND SENT TO PATHOLOGY?: NO WOUND #3 (VENOUS ULCER) IS LOCATED ON THE RIGHT LEG - LOWER. A MULTILAYER COMPRESSION PROCEDURE WAS PERFORMED FOR THE LOWER RIGHT EXTREMITY BY GENA LING RN. A 2 LAYER COBAN WRAP WAS APPLIED. THE PROCEDURE WAS TOLERATED WELL WITH A PAIN LEVEL OF 0 THROUGHOUT AND A PAIN LEVEL OF 0 FOLLOWING THE PROCEDURE. GENERAL NOTES COBAN 2 REGULAR COMPRESSION WRAP SYSTEM APPLIED PER BOG CUTTER'S GUIDELINES. PLAN WOUND ORDERS: WOUND #3 RIGHT LEG - LOWER HAND HYGIENE HAND HYGIENE - WASH HANDS BEFORE AND AFTER WOUND CARE. CALL THE WOUND CENTER AT [phone] IF YOU HAVE SIGNS OR SYMPTOMS OF INFECTION, FEVER CHILLS OR SHAKES, INCREASED DRAINAGE, INCREASED ODOR OR UNUSUAL REDNESS. AFTER WOUND CENTER HOURS PLEASE NOTIFY YOUR PCP OR GO TO THE EMERGENCY ROOM. CLEANSER CLEANSE WOUND WITH NORMAL SALINE APPLY HYPOCHLOROUS ACID (VASHE OR SIMILAR) SOAKED 4X4 GAUZE TO WOUND BED POST DEBRIDEMENT FOR 5-10 MINUTES. REMOVE GAUZE AND DRESS WOUND ACCORDING TO DRESSING ORDERS. TOPICAL TREATMENTS OTHER ORDER: - LOTRISONE TO PERIWOUND. AMLACTIN CREAM TO LEG. DRESSING ORDERS APPLY DRESSING(S) AND SECURE WITH: - URGOCLEAN, OPTIFOAM. DRESSING CHANGE FREQUENCY LEAVE DRESSING INTACT UNTIL YOUR NEXT WOUND CENTER APPOINTMENT. KEEP DRY. COMPRESSION/EDEMA CONTROL ELEVATE LEG(S) ABOVE THE LEVEL OF THE HEART MUCH POSSIBLE. AVOID STANDING IN ONE POSITION FOR MORE THAN 10 MINUTES. AVOID SITTING WITH LEGS DOWN. DO NOT CROSS LEGS WHEN SITTING. APPLY MULTI LAYER WRAP TO AFFECTED LEG(S) AT 30-40MMHG. - COBAN 2 LAYER COMPRESSION WRAP SYSTEM. ADDITIONAL ORDERS: DIETARY TAKE VITAMIN C 1000MG BY MOUTH DAILY. TAKE ZINC 25MG BY MOUTH DAILY. INCREASE THE PROTEIN IN YOUR DIET. FOLLOW-UP APPOINTMENTS RETURN APPOINTMENT 1 WEEK - TUESDAYS. RETURN FOR NURSE VISIT ON DATE NOTED BELOW FOR WOUND ASSESSMENT, MECHANICAL DEBRIDEMENT NECESSARY, AND DRESSING CHANGE ORDERED DURING TODAY'S VISIT: COMPLETE FOR DIAGNOSIS OF: - FRIDAYS SCRIBING ATTESTATION I ATTEST, THE NURSE, THAT I SCRIBED THESE ORDERS FOR THE WOUND CARE PROVIDER. PROVIDER REVIEW AND ATTESTATION: REVIEWED AND EVALUATED LABS. REVIEWED HOSPITAL RECORDS. DISCUSSED THE PLAN OF CARE @ BEDSIDE WITH - THE PATIENT AND SMOKING CESSATION WAS ENCOURAGED. I AGREE AND ATTEST TO THE ABOVE INFORMATION PROVIDED FROM OTHER LICENSED PROFESSIONALS. PLAN OF CARE: ADRIANA CHAVEZ [id number] 1950 01. ENSURE/ESTABLISH OPTIMAL BLOOD FLOW : - COMPLETE LOWER EXTREMITY ASSESSMENT STATUS: CONTINUED DATE: 09/18/2024 - PERFORM NON-INVASIVE VASCULAR TESTING (I.E. KAYLENE) AND DOCUMENT FINDINGS. CONSIDER REPEATING WHEN WOUND HEALING <40% AFTER 30 DAYS OF WOUND CARE. STATUS: COMPLETED DATE: 06/28/2024 02. ASSESS FOR/TREAT INFECTION : - EVALUATE FOR SIGNS AND SYMPTOMS OF INFECTION AND DOCUMENT FINDINGS. STATUS: CONTINUED DATE: 09/18/2024 - OBTAIN CULTURE AND SENSITIVITY (CANDS) OR TISSUE CULTURE WHEN INFECTION IS SUSPECTED. (NOTE:) CONSIDER REPEATING WHEN WOUND HEALING <40% AFTER 30 DAYS OF WOUND CARE. STATUS: COMPLETED DATE: 06/28/2024 03. DEBRIDE WEEKLY OR MORE OFTEN PRN : - EVALUATE PATIENT IN CENTER WEEKLY TO ASSESS WOUND BED AND MARGINS FOR NEED FOR DEBRIDEMENT. STATUS: CONTINUED DATE: 09/18/2024 - DEBRIDEMENT BY ANY METHOD TO REMOVE DEVITALIZED/NECROTIC TISSUE TO PROMOTE HEALING AND PREVENT FURTHER COMPLICATIONS. GOAL IS TO STIMULATE AND/OR MAINTAIN ACUTE PHASE OF WOUND HEALING BY REDUCING BACTERIAL BURDEN AND DEVITALIZED/NON-VIABLE TISSUE. STATUS: CONTINUED DATE: 09/18/2024 04. OPTIMIZE GLUCOSE CONTROL AND NUTRITION : - ORDER/REVIEW PERTINENT LABS TO EVALUATE RENAL FUNCTION, GLUCOSE CONTROL, AND NUTRITIONAL STATUS. STATUS: CONTINUED DATE: 09/18/2024 05. OFFLOADING PLAN : - REVIEWED, NOT APPLICABLE 06. OPTIMIZE HOST FACTORS: - ASSESS AND REVIEW PATIENT HISTORY FOR WOUND ETIOLOGY, CO-MORBID CONDITIONS, MEDICATION REGIME, AND SMOKING HISTORY. STATUS: CONTINUED DATE: 09/18/2024 07. DRESSING SELECTION : - EVALUATE FOR DRESSING-RELATED FACTORS, SUCH AVAILABILITY, WEAR TIME, ADAPTABILITY AND USE TO BETTER OPTIMIZE WOUND HEALING AND PATIENT COMPLIANCE. STATUS: CONTINUED DATE: 09/18/2024 - CHOOSE TOPICAL TREATMENTS AND/OR DRESSING BASED ON WOUND TYPE AND APPEARANCE, PERIWOUND SKIN CONDITION, WOUND SIZE AND DEPTH, ANATOMIC LOCATION, VOLUME OF EXUDATE, EDEMA IN THE LOWER EXTREMITIES, AND RISK OR PRESENCE OF INFECTION. STATUS: CONTINUED DATE: 09/18/2024 08. ADVANCED MODALITIES : - REVIEWED, NOT APPLICABLE 09. FALL PREVENTION : - COMPLETE FALL ASSESSMENT. STATUS: COMPLETED DATE: 06/28/2024 10. PAIN MANAGEMENT : - COMPLETE PAIN ASSESSMENT STATUS: COMPLETED DATE: 06/28/2024 11. MEASURABLE GOALS FOR WOUND HEALING AND/OR HYPERBARIC OXYGEN THERAPY : - DECREASE WOUND DIMENSIONS STATUS: CONTINUED DATE: 09/18/2024 12. DURATION/FREQUENCY OF WOUND CARE VISITS : - 2X WEEKLY FOR 30 DAYS STATUS: CONTINUED DATE: 09/18/2024 ADRIANA CHAVEZ [id number] 1950 ELECTRONIC SIGNATURE(S) SIGNED BY: DATE: MAGALIS HERNANDEZ MD 09/26/2024 16:19:23 (PT) ENTERED BY: MAGALIS HERNANDEZ MD ON 09/25/2024 12:26:53 (PT) ADRIANA CHAVEZ [id number] 1950
== END ==
LOC: WC 10:51
PROVIDERS: Family Provider Family Medicine; PCP Family Medicine; Referring Provider Family Medicine; Visit Provider Surgery
DX: I87.2 Venous insufficiency (chronic) (peripheral) (principal); L97.812 Non-pressure chronic ulcer of other part of right lower leg with fat layer exposed; I73.9 Peripheral vascular disease, unspecified; L98.8 Other specified disorders of the skin and subcutaneous tissue; R60.0 Localized edema; F17.200 Nicotine dependence, unspecified, uncomplicated
CPT/HCPCS: 11042

== ENCOUNTER → 2024-09-28 10:50 | Outpatient (CLI) | payer OTHER, SELFPAY | PROVIDERS: Family Provider Family Medicine; PCP Family Medicine; Referring Provider Family Medicine; Visit Provider Physician Assistant | DX: I87.2 Venous insufficiency (chronic) (peripheral) (principal); L97.812 Non-pressure chronic ulcer of other part of right lower leg with fat layer exposed; L98.8 Other specified disorders of the skin and subcutaneous tissue; R60.0 Localized edema | CPT/HCPCS: 29581 ==

== ENCOUNTER → 2024-10-02 13:47 | Outpatient (CLI) | payer OTHER, SELFPAY | PROVIDERS: Family Provider Family Medicine; PCP Family Medicine; Referring Provider Family Medicine; Visit Provider Surgery | DX: I87.2 Venous insufficiency (chronic) (peripheral) (principal); L97.812 Non-pressure chronic ulcer of other part of right lower leg with fat layer exposed; L98.8 Other specified disorders of the skin and subcutaneous tissue; I73.9 Peripheral vascular disease, unspecified; I80.01 Phlebitis and thrombophlebitis of superficial vessels of right lower extremity; R60.0 Localized edema; F17.200 Nicotine dependence, unspecified, uncomplicated; L30.9 Dermatitis, unspecified | CPT/HCPCS: 11042; 87070; 87075; 87077; 87147; 87186; 87205 ==

== ENCOUNTER → 2024-10-05 11:15 | Outpatient (CLI) | payer OTHER, SELFPAY | PROVIDERS: Family Provider Family Medicine; PCP Family Medicine; Referring Provider Family Medicine; Visit Provider Physician Assistant | DX: I87.2 Venous insufficiency (chronic) (peripheral) (principal); L97.812 Non-pressure chronic ulcer of other part of right lower leg with fat layer exposed | CPT/HCPCS: 29581 ==

== ENCOUNTER → 2024-10-09 13:21 | Outpatient (CLI) | payer OTHER, SELFPAY | PROVIDERS: Family Provider Family Medicine; PCP Family Medicine; Referring Provider Family Medicine; Visit Provider Surgery | DX: I87.2 Venous insufficiency (chronic) (peripheral) (principal); L97.812 Non-pressure chronic ulcer of other part of right lower leg with fat layer exposed; I80.01 Phlebitis and thrombophlebitis of superficial vessels of right lower extremity; I73.9 Peripheral vascular disease, unspecified; R60.0 Localized edema; L98.8 Other specified disorders of the skin and subcutaneous tissue | CPT/HCPCS: 11042 ==

== ENCOUNTER → 2024-10-12 11:25 | Outpatient (CLI) | payer OTHER, SELFPAY | PROVIDERS: Family Provider Family Medicine; PCP Family Medicine; Referring Provider Family Medicine; Visit Provider Physician Assistant | DX: I87.2 Venous insufficiency (chronic) (peripheral) (principal); L97.812 Non-pressure chronic ulcer of other part of right lower leg with fat layer exposed; R60.0 Localized edema | CPT/HCPCS: 29581 ==

== ENCOUNTER → 2024-10-16 11:12 | Outpatient (CLI) | payer OTHER, SELFPAY | PROVIDERS: Family Provider Family Medicine; PCP Family Medicine; Referring Provider Family Medicine; Visit Provider Surgery | DX: I87.2 Venous insufficiency (chronic) (peripheral) (principal); L97.812 Non-pressure chronic ulcer of other part of right lower leg with fat layer exposed; L98.8 Other specified disorders of the skin and subcutaneous tissue; R21 Rash and other nonspecific skin eruption; I73.9 Peripheral vascular disease, unspecified; F17.200 Nicotine dependence, unspecified, uncomplicated | CPT/HCPCS: 11042; 99213 ==

== ENCOUNTER → 2024-10-19 11:17 | Outpatient (CLI) | payer OTHER, SELFPAY | PROVIDERS: Family Provider Family Medicine; PCP Family Medicine; Referring Provider Family Medicine; Visit Provider Physician Assistant | DX: L97.812 Non-pressure chronic ulcer of other part of right lower leg with fat layer exposed (principal); I87.2 Venous insufficiency (chronic) (peripheral); R60.0 Localized edema | CPT/HCPCS: 29581 ==

== ENCOUNTER → 2024-10-23 11:31 | Outpatient (CLI) | payer OTHER, SELFPAY | PROVIDERS: Family Provider Family Medicine; PCP Family Medicine; Referring Provider Family Medicine; Visit Provider Physician Assistant | DX: I87.2 Venous insufficiency (chronic) (peripheral) (principal); L97.812 Non-pressure chronic ulcer of other part of right lower leg with fat layer exposed; L98.8 Other specified disorders of the skin and subcutaneous tissue; R21 Rash and other nonspecific skin eruption | CPT/HCPCS: 29581 ==

== ENCOUNTER → 2024-10-26 11:37 | Outpatient (CLI) | payer OTHER, SELFPAY | PROVIDERS: Family Provider Family Medicine; PCP Family Medicine; Referring Provider Family Medicine; Visit Provider Physician Assistant | DX: I87.2 Venous insufficiency (chronic) (peripheral) (principal); L97.812 Non-pressure chronic ulcer of other part of right lower leg with fat layer exposed; L98.8 Other specified disorders of the skin and subcutaneous tissue; R21 Rash and other nonspecific skin eruption | CPT/HCPCS: 29581 ==

== ENCOUNTER → 2024-10-30 11:21 | Outpatient (CLI) | payer OTHER, SELFPAY | PROVIDERS: Family Provider Family Medicine; PCP Family Medicine; Referring Provider Family Medicine; Visit Provider Surgery | DX: I87.331 Chronic venous hypertension (idiopathic) with ulcer and inflammation of right lower extremity (principal); L97.812 Non-pressure chronic ulcer of other part of right lower leg with fat layer exposed; L98.8 Other specified disorders of the skin and subcutaneous tissue; R60.0 Localized edema | CPT/HCPCS: 11042 ==

== ENCOUNTER → 2024-11-02 11:19 | Outpatient (CLI) | payer OTHER, SELFPAY | PROVIDERS: Family Provider Family Medicine; PCP Family Medicine; Referring Provider Family Medicine; Visit Provider Physician Assistant | DX: I87.2 Venous insufficiency (chronic) (peripheral) (principal); L97.812 Non-pressure chronic ulcer of other part of right lower leg with fat layer exposed; L98.8 Other specified disorders of the skin and subcutaneous tissue; R60.0 Localized edema | CPT/HCPCS: 29581 ==

== ENCOUNTER → 2024-11-06 14:37 | Outpatient (CLI) | payer OTHER, SELFPAY | PROVIDERS: Family Provider Family Medicine; PCP Family Medicine; Referring Provider Family Medicine; Visit Provider Surgery | DX: I87.2 Venous insufficiency (chronic) (peripheral) (principal); L97.812 Non-pressure chronic ulcer of other part of right lower leg with fat layer exposed; L53.8 Other specified erythematous conditions; L98.8 Other specified disorders of the skin and subcutaneous tissue; R60.0 Localized edema; F17.210 Nicotine dependence, cigarettes, uncomplicated | CPT/HCPCS: 11042 ==

== ENCOUNTER → 2024-11-09 12:04 | Outpatient (CLI) | payer OTHER, SELFPAY | PROVIDERS: Family Provider Family Medicine; PCP Family Medicine; Referring Provider Family Medicine; Visit Provider Nurse Practitioner Family | DX: I87.2 Venous insufficiency (chronic) (peripheral) (principal); L97.812 Non-pressure chronic ulcer of other part of right lower leg with fat layer exposed; L53.8 Other specified erythematous conditions; L98.8 Other specified disorders of the skin and subcutaneous tissue; R21 Rash and other nonspecific skin eruption | CPT/HCPCS: 29581 ==

== ENCOUNTER → 2024-11-13 11:05 | Outpatient (CLI) | payer OTHER, SELFPAY | PROVIDERS: Family Provider Family Medicine; PCP Family Medicine; Referring Provider Family Medicine; Visit Provider Surgery | DX: I87.2 Venous insufficiency (chronic) (peripheral) (principal); L97.812 Non-pressure chronic ulcer of other part of right lower leg with fat layer exposed; I73.9 Peripheral vascular disease, unspecified; R60.0 Localized edema; L98.8 Other specified disorders of the skin and subcutaneous tissue; L53.8 Other specified erythematous conditions; F17.200 Nicotine dependence, unspecified, uncomplicated; R21 Rash and other nonspecific skin eruption | CPT/HCPCS: 11042 ==

== ENCOUNTER → 2024-11-16 10:43 | Outpatient (CLI) | payer OTHER, SELFPAY | LOC: WC 10:44 | PROVIDERS: Family Provider Family Medicine; PCP Family Medicine; Referring Provider Family Medicine; Visit Provider Surgery | DX: L97.812 Non-pressure chronic ulcer of other part of right lower leg with fat layer exposed (principal); I87.2 Venous insufficiency (chronic) (peripheral); R60.0 Localized edema; L53.9 Erythematous condition, unspecified; R21 Rash and other nonspecific skin eruption | CPT/HCPCS: 29581 ==

== ENCOUNTER → 2024-11-20 12:34 | Outpatient (CLI) | payer OTHER, SELFPAY | LOC: WC 12:36 | PROVIDERS: Family Provider Family Medicine; PCP Family Medicine; Referring Provider Family Medicine; Visit Provider Surgery | DX: I87.311 Chronic venous hypertension (idiopathic) with ulcer of right lower extremity (principal); L97.812 Non-pressure chronic ulcer of other part of right lower leg with fat layer exposed; R60.0 Localized edema; I73.9 Peripheral vascular disease, unspecified; F17.200 Nicotine dependence, unspecified, uncomplicated; R21 Rash and other nonspecific skin eruption | CPT/HCPCS: 11042; 99213 ==

== ENCOUNTER → 2024-11-23 11:17 | Outpatient (CLI) | payer OTHER, SELFPAY | LOC: WC 11:18 | PROVIDERS: Family Provider Family Medicine; PCP Family Medicine; Referring Provider Family Medicine; Visit Provider Physician Assistant | DX: L97.812 Non-pressure chronic ulcer of other part of right lower leg with fat layer exposed (principal); I87.2 Venous insufficiency (chronic) (peripheral); R60.0 Localized edema; L53.9 Erythematous condition, unspecified; R21 Rash and other nonspecific skin eruption | CPT/HCPCS: 29581 ==

== ENCOUNTER → 2024-11-27 11:27 | Outpatient (CLI) | payer OTHER, SELFPAY | LOC: WC 11:27 | PROVIDERS: Family Provider Family Medicine; PCP Family Medicine; Referring Provider Family Medicine; Visit Provider Surgery | DX: L97.812 Non-pressure chronic ulcer of other part of right lower leg with fat layer exposed (principal); L53.9 Erythematous condition, unspecified; R60.0 Localized edema; R21 Rash and other nonspecific skin eruption | CPT/HCPCS: 11042 ==

== ENCOUNTER → 2024-11-30 11:06 | Outpatient (CLI) | payer OTHER, SELFPAY | PROVIDERS: Family Provider Family Medicine; PCP Family Medicine; Referring Provider Family Medicine; Visit Provider Physician Assistant | DX: I87.2 Venous insufficiency (chronic) (peripheral) (principal); L97.812 Non-pressure chronic ulcer of other part of right lower leg with fat layer exposed; L53.9 Erythematous condition, unspecified; R60.0 Localized edema | CPT/HCPCS: 29581 ==

== ENCOUNTER → 2024-12-04 10:50 | Outpatient (CLI) | payer OTHER, SELFPAY | PROVIDERS: Family Provider Family Medicine; PCP Family Medicine; Referring Provider Family Medicine; Visit Provider Surgery | DX: I87.331 Chronic venous hypertension (idiopathic) with ulcer and inflammation of right lower extremity (principal); L97.812 Non-pressure chronic ulcer of other part of right lower leg with fat layer exposed; I73.9 Peripheral vascular disease, unspecified; R60.0 Localized edema; L53.9 Erythematous condition, unspecified; F17.200 Nicotine dependence, unspecified, uncomplicated | CPT/HCPCS: 11042; 87070; 87075; 87077; 87147; 87186; 87205 ==

== ENCOUNTER → 2024-12-07 11:00 | Outpatient (CLI) | payer OTHER, SELFPAY | PROVIDERS: Family Provider Family Medicine; PCP Family Medicine; Referring Provider Family Medicine; Visit Provider Physician Assistant | DX: I87.2 Venous insufficiency (chronic) (peripheral) (principal); L97.812 Non-pressure chronic ulcer of other part of right lower leg with fat layer exposed; L53.9 Erythematous condition, unspecified; R60.0 Localized edema; R21 Rash and other nonspecific skin eruption | CPT/HCPCS: 29581 ==

== ENCOUNTER → 2024-12-11 16:00 | Outpatient (CLI) | payer OTHER, SELFPAY | PROVIDERS: Family Provider Family Medicine; PCP Family Medicine; Referring Provider Family Medicine; Visit Provider Surgery | DX: I87.311 Chronic venous hypertension (idiopathic) with ulcer of right lower extremity (principal); L97.812 Non-pressure chronic ulcer of other part of right lower leg with fat layer exposed; I73.9 Peripheral vascular disease, unspecified | CPT/HCPCS: 11042 ==

== ENCOUNTER → 2024-12-14 10:55 | Outpatient (CLI) | payer OTHER, SELFPAY | PROVIDERS: Family Provider Family Medicine; PCP Family Medicine; Referring Provider Family Medicine; Visit Provider Surgery | DX: L97.812 Non-pressure chronic ulcer of other part of right lower leg with fat layer exposed (principal); I87.2 Venous insufficiency (chronic) (peripheral); R60.0 Localized edema; L53.9 Erythematous condition, unspecified; R21 Rash and other nonspecific skin eruption | CPT/HCPCS: 29581 ==

== ENCOUNTER → 2024-12-18 10:53 | Outpatient (CLI) | payer OTHER, SELFPAY | LOC: WC 10:54 | PROVIDERS: Family Provider Family Medicine; PCP Family Medicine; Referring Provider Family Medicine; Visit Provider Surgery | DX: I87.331 Chronic venous hypertension (idiopathic) with ulcer and inflammation of right lower extremity (principal); L97.812 Non-pressure chronic ulcer of other part of right lower leg with fat layer exposed; R21 Rash and other nonspecific skin eruption; R60.0 Localized edema; L53.9 Erythematous condition, unspecified | CPT/HCPCS: 11042; 99213 ==

== ENCOUNTER → 2024-12-21 15:28 | Outpatient (CLI) | payer OTHER, SELFPAY | LOC: WC 15:29 | PROVIDERS: Family Provider Family Medicine; PCP Family Medicine; Referring Provider Family Medicine; Visit Provider Physician Assistant | DX: I87.2 Venous insufficiency (chronic) (peripheral) (principal); L97.812 Non-pressure chronic ulcer of other part of right lower leg with fat layer exposed; L53.9 Erythematous condition, unspecified | CPT/HCPCS: 29581 ==

== ENCOUNTER → 2024-12-25 11:34 | Outpatient (CLI) | payer OTHER, SELFPAY | LOC: WC 11:35 | PROVIDERS: Family Provider Family Medicine; PCP Family Medicine; Referring Provider Family Medicine; Visit Provider Surgery | DX: I87.2 Venous insufficiency (chronic) (peripheral) (principal); L97.812 Non-pressure chronic ulcer of other part of right lower leg with fat layer exposed; I73.9 Peripheral vascular disease, unspecified | CPT/HCPCS: 97602; 99213 ==

== ENCOUNTER → 2025-01-01 13:31 | Outpatient (CLI) | payer OTHER, SELFPAY | LOC: WC 13:32 | PROVIDERS: Family Provider Family Medicine; PCP Family Medicine; Referring Provider Family Medicine; Visit Provider Surgery | DX: I87.331 Chronic venous hypertension (idiopathic) with ulcer and inflammation of right lower extremity (principal); L97.812 Non-pressure chronic ulcer of other part of right lower leg with fat layer exposed; R21 Rash and other nonspecific skin eruption; L53.9 Erythematous condition, unspecified | CPT/HCPCS: 99212; 99213 ==

== ENCOUNTER → 2025-01-08 15:21 | Outpatient (CLI) | payer OTHER, SELFPAY | PROVIDERS: Family Provider Family Medicine; PCP Family Medicine; Referring Provider Family Medicine; Visit Provider Surgery | DX: Z87.2 Personal history of diseases of the skin and subcutaneous tissue (principal) | CPT/HCPCS: 99212; 99213 ==

== ENCOUNTER → 2025-06-20 17:09 | Outpatient (CLI) | payer OTHER, SELFPAY ==
[2025-06-20 18:20] LABS: Add Manual Diff / Slide Review NO; Hematocrit 42.9 % (41-53); Hemoglobin 14.7 g/dL (13.5-17.5); Lymphocytes Absolute Auto 2000 /uL (1100-4500); Mean Corpuscular HGB Conc 34.2 % (30-36); Mean Corpuscular Hemoglobin 31.6 PG (26-34); Mean Corpuscular Volume 92.5 fL (80-100); Platelet Count 330 X10^3/uL (150-400)
[2025-06-20 18:59] LABS: Alanine Aminotransferase 19 IU/L (<50); Albumin 4.6 g/dL (3.5-5.0); Albumin Globulin Ratio 2.0 (1.0-2.8); Alkaline Phosphatase 59 U/L (38-126); Blood Urea Nitrogen 20 mg/dL (9-20); Calcium 9.2 mg/dL (8.4-10.2); Carbon Dioxide 25 mmol/L (22-32); Chloride 106 mmol/L (98-107); Estimated Glomerular Filt Rate > 60 mL/min (>60); Globulin 2.3 g/dL (1.7-4.1); Glucose 93 mg/dL (70-99); HEMOLYSIS < 15 (0-50); Potassium 4.4 mmol/L (3.4-5.1); Sodium 140 mmol/L (137-145); Total Protein 6.9 g/dL (6.3-8.2)
[2025-06-20 19:45] LABS: TSH w/ Reflex to FT4 1.56 uIU/mL (0.47-4.68)
[2025-06-20 20:03] LABS: Vitamin B12 288 pg/mL (239-931)
== END ==
PROVIDERS: Physician Assistant; Family Provider Family Medicine; PCP Family Medicine; Referring Provider Family Medicine; Visit Provider Family Medicine
DX: E78.41 Elevated Lipoprotein(a) (principal); I10 Essential (primary) hypertension; R53.83 Other fatigue; R26.89 Other abnormalities of gait and mobility; F17.210 Nicotine dependence, cigarettes, uncomplicated
CPT/HCPCS: 36415; 80053; 82607; 84443; 85025

== ENCOUNTER → 2025-06-21 10:41 | Outpatient (CLI) | payer OTHER, SELFPAY ==
--- NOTE | 2025-06-21 10:44 | DI.RAD.S_ITS ---
1PROCEDURE: XR CHEST 2V INDICATIONS: Chest discomfort; Hx of smoking >30 yrs TECHNIQUE: 2 views of the chest were acquired. COMPARISON: None. FINDINGS: Surgical changes and devices: None. Lungs and pleura: Lungs are clear. No pleural effusions or pneumothorax. Bronchial wall thickening is noted. Mediastinum: Mediastinal contours appear normal. Heart size is normal. Atheromatous plaques are noted in the thoracic aorta. Bones and chest wall: No suspicious bony abnormalities. Soft tissues appear unremarkable. Multilevel degenerative disc disease noted. IMPRESSION: Bronchial wall thickening is noted. These findings are nonspecific but can be due to reactive airways disease or bronchitis. No consolidation. No acute cardiopulmonary abnormality is seen. Dictated by: Delia Marr M.D. on 06/25/2025 at 12:13 Approved by: Delia Marr M.D. on 06/25/2025 at 12:14
== END ==
PROVIDERS: Family Provider Family Medicine; PCP Family Medicine; Referring Provider Physician Assistant; Visit Provider Physician Assistant
DX: I73.9 Peripheral vascular disease, unspecified (principal); R07.89 Other chest pain; F17.200 Nicotine dependence, unspecified, uncomplicated
CPT/HCPCS: 71046

== ENCOUNTER → 2025-06-26 08:45 | Outpatient (CLI) | payer OTHER, SELFPAY ==
--- NOTE | 2025-06-26 08:46 | DI.US.S_ITS ---
PROCEDURE: US ABDOMEN LIMITED INDICATIONS: Smoker >30yrs Hx of PVD concern for AAA TECHNIQUE: Real time scanning was performed of the aorta and iliac arteries, with image documentation. COMPARISON: None. FINDINGS: Aorta: Proximal aortic not well seen. Mid-aorta measures 2 cm. Distal aortic diameter is 1.3 cm. Iliac arteries: Right common iliac artery measures 1.2 cm. Left common iliac artery measures 1.2 cm. IMPRESSION: No abdominal aortic or proximal common iliac artery aneurysm. Proximal aorta is not well seen. Dictated by: Maxi MICHELLE Interpreted: Panda Heredia MD on 06/26/2025 at 11:17 Transcribed by: MITCHELL on 06/26/2025 at 13:24 Approved by: Panda Heredia M.D. on 06/27/2025 at 15:39
== END ==
LOC: US 08:46
PROVIDERS: Family Provider Family Medicine; PCP Family Medicine; Referring Provider Physician Assistant; Visit Provider Physician Assistant
DX: Z13.6 Encounter for screening for cardiovascular disorders (principal); I73.9 Peripheral vascular disease, unspecified; F17.200 Nicotine dependence, unspecified, uncomplicated; R07.89 Other chest pain
CPT/HCPCS: 76706

== ENCOUNTER → 2025-06-27 09:12 | Outpatient (CLI) | payer OTHER, SELFPAY ==
--- NOTE | 2025-06-27 09:15 | DI.MRI.S_ITS ---
PROCEDURE: MR ANGIO HEAD WO CON INDICATIONS: Loss of balance; sensation of pre-syncope TECHNIQUE: Noncontrast axial 3-D [id number] MR angiogram, with 3-dimensional maximum intensity projection (MIP) reformats of the internal carotid arteries and posterior circulation then performed. COMPARISON: CT, CT ANGIO HEAD AND NECK, 02/03/2024, 18:13. CT, CT HEAD/BRAIN WO CON, 02/03/2024, 14:25. FINDINGS: Image quality: Excellent. Anterior circulation: Intracranial internal carotid arteries demonstrate normal size and intraluminal flow signal. The flow within the paired anterior cerebral arteries is normal and symmetric. The flow within the middle cerebral arteries is normal and symmetric. The anterior communicating artery is seen. No stenoses, occlusions, or aneurysms. Posterior circulation: Is a markedly diminutive appearance with signal loss in the V4 segment of the left vertebral artery. Mild calcification was present in 2013. . The flow within the posterior cerebral arteries is normal and symmetric. No stenoses, occlusions, or aneurysms. IMPRESSION: Diminutive appearance with poor signal of the left V4 segment of the vertebral artery. While this could be secondary to calcification, given prominent change since 2023, CTA head is recommended for further evaluation. Dictated by: Sameera Scruggs M.D. on 06/27/2025 at 16:26 Approved by: Sameera Scruggs M.D. on 06/27/2025 at 16:32
== END ==
LOC: MRI 09:14
PROVIDERS: Family Provider Family Medicine; PCP Family Medicine; Referring Provider Family Medicine; Visit Provider Family Medicine
DX: I10 Essential (primary) hypertension (principal); R55 Syncope and collapse; R26.89 Other abnormalities of gait and mobility; I73.9 Peripheral vascular disease, unspecified; Z98.1 Arthrodesis status
CPT/HCPCS: 70544

== ENCOUNTER → 2025-07-08 09:26 | Outpatient (CLI) | payer OTHER, SELFPAY ==
--- NOTE | 2025-07-08 09:27 | DI.CT.S_ITS ---
PROCEDURE: CT ANGIO HEAD INDICATIONS: abnormal mra on 06/27 TECHNIQUE: Precontrast 4.5 mm thick angled axial sections acquired from the foramen magnum to the vertex. After the administration of intravenous contrast, 1 mm thick sections acquired through the [place]. Postcontrast 4.5 mm thick sections then re- acquired from the foramen magnum to the vertex. 10 mm thick [id number] (MIP) reformats were acquired of the central intracranial vasculature. For radiation dose reduction, the following was used: automated exposure control, adjustment of mA and/or kV according to patient size. COMPARISON: [facility], MR, MR ANGIO HEAD WO CON, 06/27/2025, 9:33. [facility], CT, CT ANGIO HEAD AND NECK, 02/03/2024, 18:13. FINDINGS: Image quality: Diagnostic. Anterior circulation: Intracranial internal carotid arteries are normal in size and flow. The flow within the paired anterior cerebral arteries is normal and symmetric. The flow within the middle cerebral arteries is normal and symmetric. The anterior communicating artery is seen. No aneurysms are seen. Posterior circulation: Visualized portions of the vertebral arteries demonstrate normal caliber, and join to form a normal appearing basilar artery. The V4 segment of the left vertebral artery has mild wall calcifications. There is a dominant left V4 segment, widely patent. The right V4 segment is somewhat smaller, but widely patent. Flow within the posterior cerebral arteries is normal and symmetric. No aneurysms are seen. CSF spaces: Ventricles are normal in size and shape. Basal cisterns are patent. No extra-axial fluid collections. Brain: No midline shift. No intracranial bleeds or masses. Pires-white matter interface appears intact. Age-related volume loss and [id number], age-appropriate small vessel ischemic change. Skull and face: Calvarium and facial bones appear intact, without suspicious lesions. Sinuses: Visualized sinuses and mastoids are clear. IMPRESSION: No significant intracranial arterial abnormality is seen. Dictated by: Sekou Carroll M.D. on 07/08/2025 at 11:15 Approved by: Sekou Carroll M.D. on 07/08/2025 at 11:18
[2025-07-08 09:58] LABS: Estimated Glomerular Filt Rate > 60 mL/min (>60)
== END ==
LOC: CT 09:26
PROVIDERS: Family Provider Family Medicine; PCP Family Medicine; Referring Provider Family Medicine; Visit Provider Family Medicine
DX: I73.9 Peripheral vascular disease, unspecified (principal); I10 Essential (primary) hypertension; R93.0 Abnormal findings on diagnostic imaging of skull and head, not elsewhere classified
CPT/HCPCS: 36415; 70496; 82565; Q9967